=== PATIENT | male | born 1975 | race Hispanic/Latino ===

== ENCOUNTER 2024-12-28 15:44 | Inpatient (IN) | payer SELFPAY ==
[~2024-12-28] VITALS: Ht 177.8 cm; Wt 129.3 kg
[2024-12-28 16:24] LABS: APPEARANCE,URINE CLEAR (CLEAR); GLUCOSE, URINE (UA) >=1000 mg/dL (NEGATIVE); LEUKOCYTE ESTERASE ,URINE 25 Leu/uL (NEGATIVE); NITRATE,URINE NEGATIVE (NEGATIVE); OCCULT BLOOD,URINE NEGATIVE (NEGATIVE)
[2024-12-28 16:25] LABS: IMMATURE GRANULOCYTE ABSOLUTE 0.17 K/uL (0-1); NUCLEATED RED BLOOD CELLS 0.0 % (0.0-0.19); PLATELET COUNT (AUTO) 211 K/uL (130-400); RED BLOOD CELL COUNT(AUTO) 5.19 MIL/uL (4.50-6.20); RED CELL DISTRIBUTION WIDTH 12.0 % (11.0-15.5); WHITE BLOOD COUNT (AUTO) 13.7 K/uL (4.8-10.8)
[2024-12-28 16:25] LABS: ADD UA MICROSCOPIC YES
--- NOTE | 2024-12-28 16:31 | NUR ---
PENDING GFR RESULTS, IV SITE, & CONSENT FOR CT EXAM.
[2024-12-28 16:36] LABS: CREATININE 0.9 mg/dL (0.5-1.3); GLOMERULAR FILTR. RATE CALC 106.0 mL/min (>90); GLUCOSE,RANDOM 362.0 mg/dL (70-105); SODIUM SERUM 136.0 mmol/L (136-145); UREA NITROGEN, BLOOD 22.0 mg/dL (7-18)
[2024-12-28 16:41] LABS: CREATINE KINASE, TOTAL 54.0 U/L (21-232)
[2024-12-28 16:43] LABS: OTHER CASTS, URINE 1 /LPF (None Seen); SQUAMOUS EPITHELIAL CELL,UR FEW /HPF (0-2)
[2024-12-28] MEDS ORDERED: VANCOMYCIN KIT 1 GM/250 ML IV.KIT IV ONE (17:00)
[2024-12-28] MEDS ORDERED: IOHEXOL-350 75 ML VIAL IV ONE (17:20)
[2024-12-28] MEDS: [UNRECOGNIZED DRUG - OTHER] IV ONE (17:39)
--- NOTE | 2024-12-28 17:57 | ERN ---
General Chief Complaint: Cellulitis Stated Complaint: CELLULITIS Time Seen by MD: 15:47 History of Present Illness Initial Comments 49-year-old male, diabetic, obesity, presents for abdominal wall cellulitis and purulence draining from his belly button. Patient reports for the last week or so he has had some tenderness of the area, recently he has had increased spreading. There is some drainage coming from his belly but in and severe tenderness. He denies fever. He is tachycardic. Allergies: Coded Allergies: No Known Drug Allergies (Unverified Allergy, Unknown, 12/28/24) Past Medical History Past Medical History: Diabetes-Type II, Hypertension Past Surgical History: None ROS Dictation CONSTITUTIONAL: No chills, no fever, no weakness, no diaphoresis, no malaise. HEAD/FACE: No signs of trauma. EENT: No eye pain, no blurred vision, no tearing, no double vision, no ear pain, no ear discharge, no nose pain, no nasal congestion, no throat pain, no throat swelling, no mouth pain. RESPIRATORY: No cough, no orthopnea, no SOB, no stridor, no wheezing. CARDIOVASCULAR: No chest pain, no edema, no palpitations, no syncope. GASTROINTESTINAL/ABDOMINAL: Abdominal wall pain GENITOURINARY: No abnormal discharge, no dysuria, no frequent urination, no hematuria. No complaints of pain in the genitals. MUSCULOSKELETAL: No back pain, no gout, no joint pain, no joint swelling, no muscle pain, no muscle stiffness, no neck pain. INTEGUMENTARY: No change in color, no change in hair/nails, no dryness, no lesion, no lumps, no rash. NEUROLOGICAL/PSYCH: No anxiety, not depressed, no emotional problem, no headache, no numbness, no pre-existing deficit, no history of seizures, no trem ors, no weakness. HEMATOLOGIC/LYMPHATIC: Not anemic, no history of blood clots, no apparent bleeding, no bruising, glands not swollen. All Systems Negative, Except as Noted. Physical Exam Physical Exam Dictation VITAL SIGNS: Reviewed. GENERAL APPEARANCE: Alert, oriented x3, no acute distress, obese. HEAD AND FACE: Non-traumatic. EYES: PERRL, pink conjunctivas, eyelid no trauma, anterior chamber clear. EARS: Pinnas intact and no signs of trauma or erythema. Ear canals clear and no discharge. TMs no erythema. NOSE: No discharge, no bleeding. OROPHARYNX: Mouth normal, teeth no caries, tongue pink. Pharynx clear, no erythema. Tonsils no exudates, no abscesses noted. Mucous membrane moist. NECK: Supple, non-tender, no thyromegaly, no masses, no JVD, no bruits. BREAST: Deferred. CHEST: No tenderness, no crepitus, no paradoxical movement, no retractions. LUNGS: Clear, well-ventilated, symmetric, no rales, no wheezing, no rhonchi, no stridor, good breath sounds bilaterally. HEART: Regular rate, regular rhythm, no murmur, no gallops. VASCULAR: No peripheral edema. ABDOMEN: Cellulitis the with the wall, fluctuant purulent area near the belly but in about the size of a golf ball RECTAL: Deferred. GENITAL: Deferred. NEUROLOGICAL: Normal speech, gross motor function intact, gross sensory function intact. MUSCULOSKELETAL: Neck nontender, full range of motion, back nontender, full range of motion. EXTREMITIES: Nontender, full range of motion. SKIN: Color pink, dry, no turgor, no rash, no lacerations, no abrasions, no contusions. LYMPHATICS: Deferred. Results Laboratory and Microbiology Lab and Micro Result Laboratory Tests Test 12/28/24 16:09 12/28/24 16:12 Urine Color LIGHT-YELLOW (YELLOW) Urine Appearance CLEAR (CLEAR) Urine pH 5.5 (5.0-8.0) Urine Specific [place] 1.033 (1.001-1.031) Urine Protein NEGATIVE mg/dL (NEGATIVE) Urine Glucose (UA) >=1000 mg/dL (NEGATIVE) H Urine Ketones 40 mg/dL (NEGATIVE) H Urine Occult Blood NEGATIVE (NEGATIVE) Urine Nitrate NEGATIVE (NEGATIVE) Urine Bilirubin NEGATIVE mg/dL (NEGATIVE) Urine Urobilinogen 0.2 mg/dL (0.2-1.0) Urine Leukocyte Esterase 25 Thierry/uL (NEGATIVE) H Urine RBC 2-5 /HPF (0-1) H Urine WBC 6-10 /HPF (0-1) H Urine Squamous Epithelial Cells FEW /HPF (0-2) Urine Bacteria None /HPF (None Seen) Urine Other Casts 1 /LPF (None Seen) White Blood Count 13.7 K/uL (4.8-10.8) H Red Blood Count 5.19 MIL/uL (4.50-6.20) Hemoglobin 15.9 g/dL (14.0-18.0) Hematocrit 45.8 % (42-54) Mean Corpuscular Volume 88.2 fL (79-99) Mean Corpuscular Hemoglobin 30.6 pg (27.0-33.0) Mean Corpuscular Hemoglobin Concent 34.7 g/dL (32.0-36.0) Red Cell Distribution Width 12.0 % (11.0-15.5) Platelet Count 211 K/uL (130-400) Mean Platelet Volume 10.2 fL (7.5-10.5) Immature Granulocyte % (Auto) 1.2 % (0-1) H Neutrophils (%) (Auto) 79.5 % (40.0-77.0) H Lymphocytes (%) (Auto) 9.9 % (21.0-51.0) L Monocytes (%) (Auto) 8.8 % (3.0-13.0) Eosinophils (%) (Auto) 0.3 % (0.0-8.0) Basophils (%) (Auto) 0.3 % (0.0-5.0) Neutrophils # (Auto) 10.9 K/uL (1.8-7.7) H Lymphocytes # (Auto) 1.4 K/uL (1.0-4.8) Monocytes # (Auto) 1.2 K/uL (0.1-1.0) H Eosinophils # (Auto) 0.04 K/uL (0.00-0.70) Basophils # (Auto) 0.04 K/uL (0.00-0.20) Absolute Immature Granulocyte (auto 0.17 K/uL (0-1) Nucleated Red Blood Cells 0.0 % (0.0-0.19) White Cell Morphology Comment See comments Sodium Level 136 mmol/L (136-145) Potassium Level 4.0 mmol/L (3.5-5.1) Chloride Level 98 mmol/L (101-111) L Carbon Dioxide Level 28 mmol/L (21-32) Blood Urea Nitrogen 22 mg/dL (7-18) H Creatinine 0.9 mg/dL (0.5-1.3) Glomerular Filtration Rate Calc 106 mL/min (>90) Random Glucose 362 mg/dL (70-105) H Lactic Acid Level 2.2 mmol/L (0.8-2.5) Total Calcium 9.0 mg/dL (8.5-10.1) Total Creatine Kinase 54 U/L (21-232) Troponin I High Sensitivity < 4 ng/L (4-75) L C-Reactive Protein, Quantitative 234.00 mg/L (0.5-3.0) H MDM CC: Abdominal wall pain an abscess Historian: Patient Comorbidities: Obesity and diabetes Limitations by social determinants of health: Uninsured Differential diagnosis: Cellulitis, sepsis, abdominal abscess Labs show leukocytosis, elevated CRP. Lactic acid is mildly elevated. Chemistries shows elevated glucose no signs of DKA. Symptoms most consistent with cellulitis and abscess The CT scan per my independent interpretation shows an abscess in the abdominal wall does not appear to cross the peritoneum no free fluid in the abdomen Patient is started on cefepime, vancomycin, IV fluids. Admitted to hospitalist. Patient received IV fluids and IV antibiotics, on sepsis focused re-evaluation after the fluid bolus and antibiotics patient has stable perfusion and stable vital signs. ED Course Orders Procedure Category Date Status Time Cbc With Differential LAB 12/28/24 In Process 16:08 Blood Cult MAL 12/28/24 In Process 16:08 Urinalysis Profile LAB 12/28/24 Complete 16:08 Culture Urine MAL 12/28/24 In Process 16:08 0.9%Nacl 1000ml (Ns PHA 12/28/24 In Process 1000ml) 16:30 Creatine Kinase, Total LAB 12/28/24 Complete 16:08 Troponin I High LAB 12/28/24 Complete Sensitivity 16:08 Lactic Acid LAB 12/28/24 Complete 16:08 Basic Metabolic Panel LAB 12/28/24 Complete 16:08 Crp Quantitative LAB 12/28/24 Complete 16:08 Erythrocyte LAB 12/28/24 In Process Sedimentation Rate 16:08 Ct Abdomen/Pelvis CT 12/28/24 Taken W/Contrast 16:08 Vancomycin 1g/250ml PHA 12/28/24 Complete Kit (Vancomycin 1g/2 17:00 Cefepime Hcl 1 Gm PHA 12/28/24 Complete Vial (Maxipime 1 Gm Vi 17:00 Iohexol (Omnipaque) PHA 12/28/24 Complete 17:20 Current Medications Medications (Trade) Dose Ordered Sig/Tom Route PRN Reason Start Time Stop Time Status Last Admin Dose Admin Cefepime HCl (MAXipime 1 GM vial) 1 gm ONCE ONCE IVPB 12/28/24 17:00 12/28/24 17:01 DC 12/28/24 17:39 Iohexol (Omnipaque) 75 ml STK-MED ONCE IV 12/28/24 17:20 12/28/24 17:20 DC Sodium Chloride 4,218 ml @ 1,406 mls/hr ONCE ONCE IV 12/28/24 16:30 12/28/24 19:29 12/28/24 17:39 Vancomycin HCl (Vancomycin 1g/ 250ml Kit) 1 gm ONCE ONCE IV 12/28/24 17:00 12/28/24 17:01 DC Vital Signs Date Time Temp Pulse Resp B/P (MAP) Pulse Ox O2 Delivery O2 Flow Rate FiO2 12/28/24 16:00 97.7 101 20 145/69 98 Room Air* 0 21 12/28/24 15:45 97.5 110 18 140/90 97 Room Air DX & DISP Disposition: Inpatient Departure Impression: Primary Impression: Sepsis Additional Impressions: Abdominal wall abscess, Abdominal wall cellulitis, Hyperglycemia Critical Time: 30 minutes (Critical Care Procedure NoteAuthorized and Performed by: meTotal critical care time: Approximately 36 minutesDue to a high probability of clinically significant, life threatening deterioration, the patient required my highest level of preparedness to intervene emergently and I personally spent this critical care time directly and personally managing the patient. This critical care time included obtaining a history; examining the patient; pulse oximetry; ordering and review of studies; arranging urgent treatment with development of a management plan; evaluation of patient's response to treatment; frequent reassessment; and, discussions with other providers.This critical care time was performed to assess and manage the high probability of imminent, life-threatening deterioration that could result in multi-organ failure. It was exclusive of separately billable procedures and treating other patients and teaching time.Please see MDM section and the rest of the note for further information on patient assessment and treatment.) Condition: Stable Referrals: SELF,REFERRAL (PCP) ALBA HICKMAN DO Dec 28, 2024 17:57
[2024-12-28 18:17] LABS: ERYTHROCYTE SEDIMENTATION RATE 42 MM/HR (0-15)
[2024-12-28] MEDS ORDERED: COMPOUND IV REFRIGERATED 1 EACH IVSOLN MISC PRN (18:30)
[2024-12-28] MEDS ORDERED: VANCOMYCIN PROTOCOL PER PHARMACY IV SCH (18:30)
--- NOTE | 2024-12-28 18:37 | EKG ---
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
[2024-12-28] MEDS: VANCOMYCIN 2GM/500 ML BAG 500 ML IV ONE (18:40)
--- NOTE | 2024-12-28 18:42 | HMCIMG ---
EXAM: CT Abdomen and Pelvis withIV contrast CLINICAL HISTORY: Wall cellulitis. TECHNIQUE: Thin collimated axial CT images of the abdomen and pelvis were obtained with sagittal and coronal reformatted images also submitted. CT scan done according to ALARA (As Low As Reasonably Achievable). CONTRAST: Yes. COMPARISON: None. FINDINGS: Unremarkable visualized lung parenchyma. There is no focal abnormality appreciated within the pancreas, spleen, adrenals, or kidneys. Hepatic steatosis noted. Gallbladder is contracted. There is no obvious bowel wall thickening. Bowel loops are normal in caliber without evidence of obstruction or ileus. The appendix is normal. There is no abnormality within the urinary bladder. Unremarkable re-productive organs. Aorta is normal in caliber. No lymphadenopathy. No free fluid. There is no acute osseous abnormality. Mild multilevel spondylosis noted. Moderate to severe periumbilical inflammation noted. No gross drainable collection. No obvious peritoneal extension. IMPRESSIONS: Moderate to severe periumbilical cellulitis. No gross drainable collection. No obvious peritoneal extension. /[place]elches
[2024-12-28 18:43] LABS: ASPARTATE AMINOTRANSFERASE 9.0 U/L (10-37); TOTAL PROTEIN, SERUM 7.6 g/dL (6.0-8.3)
[2024-12-28 18:48] VITALS: PULSE 103; RESP 20; O2SAT 99
[2024-12-28 18:49] LABS: ABG BASE EXCESS -1.9 mmol/L (-2.0-3.0); ABG HCO3 23.9 mmol/L (21.0-28.0); ABG OXYGEN SATURATION 40.5 % (94.0-98.0); ABG PCO2 44 mmHg (35-48); ABG PH 7.349 (7.350-7.450); CARBON MONOXIDE 1.6 % (0.5-1.5); DEVICE COMMENT MAYRA RN, VBG; PO2, ARTERIAL BG < 45.0 mmHg (83.0-108.0); TEMPERATURE, CELSIUS BG 37.0 CELSIUS (35.5-37.0); VENT MODE, BG RA (ROOM AIR)
--- NOTE | 2024-12-28 19:10 | HP ---
[facility] HISTORY [facility] PHYSICAL Date of Service: Dec 28, 2024 Time of Service: 18:43 HISTORY OF PRESENT ILLNESS: Date of service: 12/28/2024 patient was seen in ER room 10 This is a 49-year-old male with underlying history of poorly controlled type 2 diabetes mellitus, obesity, hypertension who presented to the ER for further evaluation erythema, swelling increased drainage noted from the umbilical area. Patient states that symptoms initially started close to Monday night when he noticed some erythema involving the periumbilical region. Erythema has been progressive since yesterday, has been having [id number] abdominal pain as well. Redness has spread to the lateral quadrants of the abdomen patient reports noticing purulent drainage coming out as well. He went to [facility] and reports being treated with oral antibiotics with levofloxacin and clindamycin. Symptoms have not improved with oral antibiotics. Denies previous history of abscesses or skin infections. Reports being a diabetic for 10 years. He is supposed to be on metformin therapy which he has not taken for several days now. Sugars have been running high. Denies being on insulin therapy as outpatient. He has been having fevers of 101 F yesterday and has been taking Tylenol for pain control. On presentation to the hospital, patient was noted to be T-max of 97.5 F, heart rate of 110 with sinus tachycardia, blood pressure 140/90. [place] [address] with neutrophilia, hemoglobin 13.9, platelet count of 635656. BMP showed findings of sodium of 136, potassium 4.0, chloride of 98, BUN of 22 , creatinine of 0.9, blood glucose of 362, lactic acid of two CRP of 234. Patient underwent further evaluation with CT abdomen pelvis with IV contrast with the read pending, We will admit this patient for further treatment and management of progressive abdominal wall cellulitis concerns for periumbilical abscess. Patient was noted to be septic on presentation and will receive broad-spectrum antibiotics with IV vancomycin/ cefepime. Consultation with Infectious Disease will be requested to leave and if abscess is confirmed on abdominal CT, we will have surgery follow this patient for incision and drainage. Blood sugars noted be high at 362, we will obtain venous blood gas and blood ketones to rule out DKA, patient will be started on sliding scale insulin and basal Lantusfor blood glucose control. We will see how patient progresses in the next 72-96 hours. REVIEW OF SYSTEMS CONSTITUTIONAL: Be responsible coma malaise NEUROLOGICAL: Denies headache, amaurosis fugax, motor weakness, sensory deficit, vertigo/spinning sensation, gait abnormalities, or tremors. ENT: No hearing loss, otalgia, otorrhea, rhinitis, rhinorrhea, hoarseness, or sore throat. CARDIOVASCULAR: Denies any exertional angina, dyspnea on exertion, orthopnea, paroxysmal nocturnal dyspnea, palpitations, life-threatening arrhythmias, claudication. PULMONARY: Denies any shortness of breath, cough, phlegm/sputum, hemoptysis, pleuritic chest pain. SLEEP: Denies morning headaches, daytime somnolence or napping. Denies difficulty falling asleep, staying asleep, waking from sleep. Denies knowledge of snoring. GASTROINTESTINAL: Progressive redness and swelling of the abdominal wall with purulent drainage GENITOURINARY: Denies frequency, urgency, nocturia, hematuria or incontinence (Storage/Irritative symptoms.) Low urinary stream, straining to void, urinary intermittency or hesitancy, splitting of the voiding stream, terminal dribbling. ENDOCRINOLOGIC: Denies polyuria, polydipsia, polyphagia or heat/cold intolerances. HEMATOLOGIC: Denies thrombophilia/previous clots, or coagulopathy/bleeding disorders. ONCOLOGIC: Denies personal history of malignancy. DERMATOLOGIC: As noted above PSYCHIATRIC: Denies any suicidal or homicidal ideation. Denies hallucinations. PAST MEDICAL HISTORY: Hypertension, type 2 diabetes mellitus being diagnosed about 10 years ago, obesity, reports having lost about 80 lb over the last one year PAST SURGICAL HISTORY: Denies history of major surgeries PAST SOCIAL HISTORY: Denies active smoking or alcohol consumption, drinks about once a month, denies illicit drug use FAMILY HISTORY: Denies pertinent family history Allergies: No known drug allergies Home medications: Reports being on losartan for blood pressure control, and metformin, patient does not know the doses of the medication Coded Allergies: No Known Drug Allergies (Unverified Allergy, Unknown, 12/28/24) PHYSICAL EXAM GENERAL APPEARANCE: The patient is awake, alert, and oriented, in no acute cardiopulmonary distress. NEUROLOGICAL: Cranial nerves II-XII grossly intact. Motor is 5/5 in bilateral upper and lower extremities proximal to distal. No sensory deficits. HEENT: Face is symmetric. Pupils are equal and reactive. Extraocular movements are intact. NECK: Supple. No JVD. No thyromegaly. No submental, submandibular, pre- /postauricular, occipital or supraclavicular lymphadenopathy. CHEST: Normal chest expansion. No Telemetry. LUNGS: Absence of any rales, rhonchi or any wheezing. CARDIOVASCULAR: Regular. S1 and S2 normal. No appreciable rubs, murmurs or gallops. ABDOMEN: Soft, erythema noted around the abdominal wall with significant swelling, induration noted around the umbilical/periumbilical region, small amount of purulent drainage noted coming from the umbilical region : Deferred. No Kidd. EXTREMITIES: Non-edematous and not cyanotic. No clubbing. Good capillary refill. Vital Sign (Last 24 Hours) 12/28/24 16:00 Temp 97.7 Pulse 101 Resp 20 B/P (MAP) 145/69 Pulse Ox 98 O2 Delivery Room Air* O2 Flow Rate 0 FiO2 21 LABS: Laboratory: Test 12/28/24 18:24 12/28/24 16:12 12/28/24 16:09 Range/Units Whole Blood Ketones Quantitative 1.3 H 0.0-0.6 mmol/L Total Bilirubin 1.2 H 0.2-1.0 mg/dL Direct Bilirubin 0.2 0.0-0.3 mg/dL Aspartate Amino Transf (AST/SGOT) 9 L 10-37 U/L Alanine Aminotransferase (ALT/SGPT) 20 12-78 U/L Alkaline Phosphatase 88 50-136 U/L Total Protein 7.6 6.0-8.3 g/dL Albumin 3.1 L 3.5-5.0 g/dL White Blood Count 13.7 H 4.8-10.8 K/uL Red Blood Count 5.19 4.50-6.20 MIL/uL Hemoglobin 15.9 14.0-18.0 g/dL Hematocrit 45.8 42-54 % Mean Corpuscular Volume 88.2 79-99 fL Mean Corpuscular Hemoglobin 30.6 27.0-33.0 pg Mean Corpuscular Hemoglobin Concent 34.7 32.0-36.0 g/dL Red Cell Distribution Width 12.0 11.0-15.5 % Platelet Count 211 130-400 K/uL Mean Platelet Volume 10.2 7.5-10.5 fL Immature Granulocyte % (Auto) 1.2 H 0-1 % Neutrophils (%) (Auto) 79.5 H 40.0-77.0 % Lymphocytes (%) (Auto) 9.9 L 21.0-51.0 % Monocytes (%) (Auto) 8.8 3.0-13.0 % Eosinophils (%) (Auto) 0.3 0.0-8.0 % Basophils (%) (Auto) 0.3 0.0-5.0 % Neutrophils # (Auto) 10.9 H 1.8-7.7 K/uL Lymphocytes # (Auto) 1.4 1.0-4.8 K/uL Monocytes # (Auto) 1.2 H 0.1-1.0 K/uL Eosinophils # (Auto) 0.04 0.00-0.70 K/uL Basophils # (Auto) 0.04 0.00-0.20 K/uL Absolute Immature Granulocyte (auto 0.17 0-1 K/uL Nucleated Red Blood Cells 0.0 0.0-0.19 % White Cell Morphology Comment See comments Erythrocyte Sedimentation Rate 42 H 0-15 MM/HR Sodium Level 136 136-145 mmol/L Potassium Level 4.0 3.5-5.1 mmol/L Chloride Level 98 L 101-111 mmol/L Carbon Dioxide Level 28 21-32 mmol/L Blood Urea Nitrogen 22 H 7-18 mg/dL Creatinine 0.9 0.5-1.3 mg/dL Glomerular Filtration Rate Calc 106 >90 mL/min Random Glucose 362 H 70-105 mg/dL Lactic Acid Level 2.2 0.8-2.5 mmol/L Total Calcium 9.0 8.5-10.1 mg/dL Total Creatine Kinase 54 21-232 U/L Troponin I High Sensitivity < 4 L 4-75 ng/L C-Reactive Protein, Quantitative 234.00 H 0.5-3.0 mg/L Urine Color LIGHT-YELLOW YELLOW Urine Appearance CLEAR CLEAR Urine pH 5.5 5.0-8.0 Urine Specific [place] 1.033 H 1.001-1.031 Urine Protein NEGATIVE NEGATIVE mg/dL Urine Glucose (UA) >=1000 H NEGATIVE mg/dL Urine Ketones 40 H NEGATIVE mg/dL Urine Occult Blood NEGATIVE NEGATIVE Urine Nitrate NEGATIVE NEGATIVE Urine Bilirubin NEGATIVE NEGATIVE mg/dL Urine Urobilinogen 0.2 0.2-1.0 mg/dL Urine Leukocyte Esterase 25 H NEGATIVE Thierry/uL Urine RBC 2-5 H 0-1 /HPF Urine WBC 6-10 H 0-1 /HPF Urine Squamous Epithelial Cells FEW 0-2 /HPF Urine Bacteria None None Seen /HPF Urine Other Casts 1 None Seen /LPF Current Medications Medications (Trade) Dose Ordered Sig/Tom Route PRN Reason Start Time Stop Time Status Last Admin Dose Admin Acetaminophen (TYLenol 325MG TAB) 650 mg Q6H PRN PO MILD PAIN (1-3) 12/28/24 18:30 01/27/25 18:29 Albuterol (DUOneb) 1 udvial Q6H PRN IH SHORTNESS OF BREATH 12/28/24 18:30 01/27/25 18:29 Cefepime HCl (MAXipime 2 gm vial) 2 gm BID IVPB 12/29/24 09:00 01/08/25 08:59 Famotidine (Pepcid 20mg Vial) 20 mg BID IV 12/28/24 21:00 01/27/25 20:59 Insulin Human Regular (humuLIN R 100 UNIT/ML 3ML) INSULIN SLIDING SCAL... ACHS SQ 12/28/24 21:00 01/27/25 20:59 Ketorolac Tromethamine (toRADol) 15 mg Q12H PRN IV MODERATE PAIN (4-6) 12/28/24 18:30 12/30/24 18:30 Lactated Ringer's 1,000 ml @ 100 mls/hr Q10H IV 12/28/24 20:00 01/27/25 19:59 Morphine Sulfate (morPHINE 2MG SYG) 2 mg Q6H PRN IVP SEVERE PAIN (7-10) 12/28/24 18:30 01/04/25 18:29 Ondansetron HCl (zoFRAN 4MG INJ) 4 mg Q6H PRN IVP NAUSEA/VOMITING 12/28/24 18:30 01/27/25 18:29 Vancomycin HCl 250 ml @ 125 mls/hr Q12H IV 12/29/24 08:00 01/08/25 07:59 Vancomycin HCl (Vancomycin Protocol) 1 each AD IV 12/28/24 18:30 01/11/25 18:29 DIAGNOSTICS / RADIOLOGY: SERVICE 1600 REASON: wall cellulitis ORDERING PHYSICIAN: ALBA HICKMAN DO PROCEDURE: ABD PEL W - CT ABDOMEN/PELVIS W/CONTRAST EXAM: CT Abdomen and Pelvis withIV contrast CLINICAL HISTORY: Wall cellulitis. TECHNIQUE: Thin collimated axial CT images of the abdomen and pelvis were obtained with sagittal and coronal reformatted images also submitted. CT scan done according to ALARA (As Low As Reasonably Achievable). CONTRAST: Yes. COMPARISON: None. FINDINGS: Unremarkable visualized lung parenchyma. There is no focal abnormality appreciated within the pancreas, spleen, adrenals, or kidneys. Hepatic steatosis noted. Gallbladder is contracted. There is no obvious bowel wall thickening. Bowel loops are normal in caliber without evidence of obstruction or ileus. The appendix is normal. There is no abnormality within the urinary bladder. Unremarkable re-productive organs. Aorta is normal in caliber. No lymphadenopathy. No free fluid. There is no acute osseous abnormality. Mild multilevel spondylosis noted. Moderate to severe periumbilical inflammation noted. No gross drainable collection. No obvious peritoneal extension. IMPRESSIONS: Moderate to severe periumbilical cellulitis. No gross drainable collection. No obvious peritoneal extension. /[place] DICTATED BY: JANETTE ANDREWS Jr., MD DATE: 12/28/241940 ELECTRONICALLY SIGNED BY: JANETTE ANDREWS Jr., MD DATE: 12/28/241940 ASSESSMENT: Sepsis secondary to complicated cellulitis involving the periumbilical region, POA Complicated severe cellulitis involving periumbilical/umbilical region with involvement of the abdominal wall, POA r/o Developing abscess involving periumbilical/umbilical region, POA Lactic acidosis, mild, POA, 2/2 sepsis Leukocytosis, POA Severe hyperglycemia, POA History of very poorly controlled type 2 diabetes mellitus with noncompliance with metformin therapy as outpatient, POA Obesity, POA Hypertension, POA PLAN: Patient will be admitted to cardiac telemetry floor Patient will receive sepsis bolus of fluids 30 mL/kg We will start maintenance IV fluid of LR at 100 mL/hour Broad-spectrum antibiotics with IV vancomycin/cefepime, patient was taking oral levofloxacin and clindamycin at home with no improvement of cellulitis We will obtain wound cultures, we will follow up results of blood culture CT of the abdomen/pelvis with IV contrast showed severe cellulitis, we will have surgery follow this patient to ensure there is no developing abscess that might need surgical drainage Consultation with Infectious Disease will be requested Blood glucose is greater than 300, patient has mild ketosis, venous blood gas showed bicarb of 23, we will start patient on sliding scale insulin, we will start [id number] units tonight, monitor blood glucose trend closely we will check a A1c level Patient will need basal Lantus on discharge along with metformin therapy for management poorly controlled type 2 diabetes mellitus We will have endocrinology follow this patient along Pain control with IV morphine for severe pain, IV Toradol for moderate pain We will apply warm compresses with the periumbilical area tonight All labs will be repeated in the morning, we will monitor lactic acid trend closely, we will obtain a urine drug screen Prognosis: Remains guarded Discussed with patient to ensure he remains compliant with antidiabetic medications on discharge, to reduce risk of recurrent skin infections, sepsis etc. patient verbalized understanding Date of service: 12/28/2024 Plan of care was discussed with patient at bedside, Terrence Clemente MD Advanced Care Planning: Which of the following were discussed: Hospice care: Yes __ No _X_ Therapeutic options: Yes _X_ No __ Advance directives: Yes _X_ No __ Other discussions: Discussed with who?: Patient Voluntary nature of this service was explained to the patient? Yes _x_ No __ Amount of time spent: 20 minutes TERRENCE CLEMENTE MD Dec 28, 2024 19:10
[2024-12-28 19:29] LABS: INR 0.99 (0.85-1.15)
--- NOTE | 2024-12-28 19:44 | NUR ---
REPORT GIVEN TO ER HOLDING NURSE AARON DE LA FUENTE. PT MOVED FROM ER 9 TO ER 5 AT THIS TIME.
--- NOTE | 2024-12-28 19:54 | NUR ---
REPORT GIVEN BY JOSR RN, PT V/S STABLE, REPORTS LOCALIZED PAIN WITH MOVEMENT TO ABDOMINAL AREA, IV PAIN MEDICATION ADMINISTERED, PT TOLERATED WELL.
[2024-12-28] MEDS: LACTATED RINGERS 1000ML 1,000 ML IV SCH (20:37)
[2024-12-28] MEDS: FAMOTIDINE 20MG VIAL IV SCH (20:58)
[2024-12-28 21:04] VITALS: BP 117/76; PULSE 103; RESP 16; TEMP 98.3
[2024-12-28 21:34] VITALS: BP 125/68; PULSE 16; RESP 16; TEMP 98.3
--- NOTE | 2024-12-28 21:34 | NUR ---
REPORT GIVEN TO MAX RN FOR ROOM 220 AROUND 2119. PT TOLERATED FLOOR TRANSFER WELL, VS WITHIN NORMAL LIMITS
[2024-12-28 22:00] VITALS: O2SAT 97
--- NOTE | 2024-12-28 22:00 | NUR ---
WARM COMPRESS APPLIED TO UMBILICAL AREA, TOLERATED WELL, WILL CONT TO MONITOR
[2024-12-28 23:10] VITALS: BP 127/71; PULSE 102; RESP 18; TEMP 98.9
[2024-12-29] VITALS (24 sets, daily range): BP systolic 108–147; BP diastolic 56–90; PULSE 94–115; RESP 15–20; TEMP 97.7–99.4; O2SAT 96–98
[2024-12-29] MEDS ORDERED: CLIN30GE2 TP (03:09)
[2024-12-29] MEDS ORDERED: CLIN-141 PO (03:09)
[2024-12-29] MEDS ORDERED: LOSA50TA64 PO (03:09)
[2024-12-29] MEDS ORDERED: [UNRECOGNIZED DRUG - OTHER] PO (03:09)
[2024-12-29] MEDS ORDERED: LEVO750T90 PO (03:09)
[2024-12-29 03:40] LABS: IMMATURE GRANULOCYTE ABSOLUTE 0.09 K/uL (0-1); NUCLEATED RED BLOOD CELLS 0.0 % (0.0-0.19); PLATELET COUNT (AUTO) 170 K/uL (130-400); RED BLOOD CELL COUNT(AUTO) 4.41 MIL/uL (4.50-6.20); RED CELL DISTRIBUTION WIDTH 12.0 % (11.0-15.5); WHITE BLOOD COUNT (AUTO) 11.9 K/uL (4.8-10.8)
[2024-12-29 04:09] LABS: CREATININE 0.5 mg/dL (0.5-1.3); GLOMERULAR FILTR. RATE CALC 127.0 mL/min (>90); GLUCOSE,RANDOM 210.0 mg/dL (70-105); SODIUM SERUM 137.0 mmol/L (136-145); UREA NITROGEN, BLOOD 13.0 mg/dL (7-18)
[2024-12-29] MEDS: MAGNESIUM 2GM PREMIX 50ML 50 ML IV ONE (05:02)
[2024-12-29] MEDS: VANCOMYCIN 1.5 GM/250 ML BAG 250 ML IV SCH (09:00)
[2024-12-29] MEDS: SUGAMMADEX SODIUM 200 MG/2 ML VIAL IV ONE (14:06)
[2024-12-29] MEDS ORDERED: LIDOCAINE PF 100MG/5ML (2%) SYRINGE 5ML ONE (14:08)
[2024-12-29] MEDS ORDERED: MIDAZOLAM HCL 1 MG/ML 2ML VIAL ONE (14:08)
[2024-12-29] MEDS ORDERED: SUCCINYLCHOLINE CHLORIDE 20 MG/ML 10 ML VIAL ONE (14:09)
--- NOTE | 2024-12-29 14:09 | CONS ---
GENERAL SURGERY CONSULTATION NOTE Date/Time Patient Seen: December 29, 2024 1:00 p.m. Requesting Physician: Dr. Clemente Reason for Consultation: Abdominal wall cellulitis History of Present Illness: This is a 49-year-old male that presented to the emergency department for periumbilical erythema. Patient has a history of diabetes. He reports that over the last couple of weeks he noticed some foul odor and drainage around his belly button. The last few days he had redness and swelling and pain. Pain did not get any better so he came to the emergency department. Patient has been febrile tachycardic otherwise hemodynamically stable. He has a leukocytosis. CT scan of the abdomen and pelvis was performed which showed cellulitis. No clear fluid collection. Patient was admitted and started on IV antibiotics. Surgery was consulted for possible abscess. Past Medical History: Diabetes Past Surgical History: None Family History: None Social History: Noncontributory Current Medications Medications (Trade) Dose Ordered Sig/Tom Route Start Time Stop Time Status Last Admin Dose Admin Cefepime HCl (MAXipime 2 gm vial) 2 gm BID IVPB 12/29/24 09:00 01/08/25 08:59 12/29/24 10:39 2 GM Famotidine (Pepcid 20mg Vial) 20 mg BID IV 12/28/24 21:00 01/27/25 20:59 12/29/24 09:00 20 MG Insulin Glargine (LANtus 100 UNITS/ML 10 ML VIAL) 15 units HS SQ 12/28/24 21:00 01/27/25 20:59 12/28/24 20:59 15 UNITS Insulin Human Regular (humuLIN R 100 UNIT/ML 3ML) INSULIN SLIDING SCAL... ACHS SQ 12/28/24 21:00 01/27/25 20:59 12/28/24 21:00 4 UNIT Lactated Ringer's 1,000 ml @ 100 mls/hr Q10H IV 12/28/24 20:00 01/27/25 19:59 12/29/24 05:03 100 MLS/HR Vancomycin HCl 250 ml @ 125 mls/hr Q12H IV 12/29/24 08:00 01/08/25 07:59 12/29/24 09:00 125 MLS/HR Vancomycin HCl (Vancomycin Protocol) 1 each AD IV 12/28/24 18:30 9/6/25 18:29 Review of Systems: CONST: No fever, fatigue, or weight changes. EYES: No recent vision problems. ENT: No congestion, ear pain, or sore throat. C/V: No chest pain, palpitations, or edema. RESP: No cough, congestion, wheezing or shortness of breath. GI: No abdominal pain, nausea, vomiting, constipation, or diarrhea. : No incontinence or dysuria. SKIN: No rash. NEURO: No headache, focal numbness or weakness, dizziness, or seizures. PSYCH: No depression or anxiety. HEME: No abnormal bruising or bleeding. LYMPH: No swollen glands. Physical Examination: GENERAL: No acute distress. HEAD: Normal with no signs of head trauma. EYES: PERRLA, EOMI, conjunctiva and sclera normal. LUNGS: Respirations nonlabored HEART: Regular rate and rhythm ABD: Soft, nondistended, focally tender around the umbilicus in the erythematous areas. Periumbilical erythema has been marked and appears to over his three receded from markings. : Not examined EXT: No clubbing, cyanosis or edema. SKIN: No rashes or lesions noted. NEURO: Awake, alert, and oriented x3. No focal sensory or strength deficits noted. Vital Signs (last 8hr) Date Time Temp Pulse Resp B/P (MAP) Pulse Ox O2 Delivery O2 Flow Rate FiO2 12/29/24 11:30 98.4 94 18 134/78 98 Room Air 12/29/24 08:00 96 Room Air* 0 21 12/29/24 07:20 101 20 N/A Room Air 21 12/29/24 07:13 98.2 101 18 128/75 96 Room Air Laboratory: Hematology Labs: Test 12/29/24 03:09 12/28/24 16:12 Range/Units White Blood Count 11.9 H 4.8-10.8 K/uL Red Blood Count 4.41 L 4.50-6.20 MIL/uL Hemoglobin 13.6 L 14.0-18.0 g/dL Hematocrit 38.4 L 42-54 % Mean Corpuscular Volume 87.1 79-99 fL Mean Corpuscular Hemoglobin 30.8 27.0-33.0 pg Mean Corpuscular Hemoglobin Concent 35.4 32.0-36.0 g/dL Red Cell Distribution Width 12.0 11.0-15.5 % Platelet Count 170 130-400 K/uL Mean Platelet Volume 9.9 7.5-10.5 fL Immature Granulocyte % (Auto) 0.8 0-1 % Neutrophils (%) (Auto) 74.9 40.0-77.0 % Lymphocytes (%) (Auto) 14.0 L 21.0-51.0 % Monocytes (%) (Auto) 9.5 3.0-13.0 % Eosinophils (%) (Auto) 0.5 0.0-8.0 % Basophils (%) (Auto) 0.3 0.0-5.0 % Neutrophils # (Auto) 8.9 H 1.8-7.7 K/uL Lymphocytes # (Auto) 1.7 1.0-4.8 K/uL Monocytes # (Auto) 1.1 H 0.1-1.0 K/uL Eosinophils # (Auto) 0.06 0.00-0.70 K/uL Basophils # (Auto) 0.03 0.00-0.20 K/uL Absolute Immature Granulocyte (auto 0.09 0-1 K/uL Nucleated Red Blood Cells 0.0 0.0-0.19 % White Cell Morphology Comment See comments Erythrocyte Sedimentation Rate 42 H 0-15 MM/HR Chemistry Labs: Test 12/29/24 11:31 12/29/24 03:09 12/28/24 20:20 12/28/24 18:24 Range/Units Whole Blood Glucose 178 H 70-110 MG/DL Sodium Level 137 136-145 mmol/L Potassium Level 3.4 L 3.5-5.1 mmol/L Chloride Level 102 101-111 mmol/L Carbon Dioxide Level 25 21-32 mmol/L Blood Urea Nitrogen 13 7-18 mg/dL Creatinine 0.5 0.5-1.3 mg/dL Glomerular Filtration Rate Calc 127 >90 mL/min Random Glucose 210 H 70-105 mg/dL Total Calcium 7.9 L 8.5-10.1 mg/dL Magnesium Level 1.70 L 1.80-2.40 mg/dL C-Reactive Protein, Quantitative 187.50 H 0.5-3.0 mg/L Lactic Acid Level 1.5 0.8-2.5 mmol/L Whole Blood Ketones Quantitative 1.3 H 0.0-0.6 mmol/L Total Bilirubin 1.2 H 0.2-1.0 mg/dL Direct Bilirubin 0.2 0.0-0.3 mg/dL Aspartate Amino Transf (AST/SGOT) 9 L 10-37 U/L Alanine Aminotransferase (ALT/SGPT) 20 12-78 U/L Alkaline Phosphatase 88 50-136 U/L Total Protein 7.6 6.0-8.3 g/dL Albumin 3.1 L 3.5-5.0 g/dL Procalcitonin < 0.05 L 0.05-0.5 ng/mL Thyroid Stimulating Hormone (TSH) 1.62 0.36-3.74 uIU/mL Test 12/28/24 16:12 Range/Units Hemoglobin A1c 11.4 H 4.0-6.0 % Estimated Average Glucose (eAG) 280 H 70-126 mg/dL Total Creatine Kinase 54 21-232 U/L Troponin I High Sensitivity < 4 L 4-75 ng/L Coagulation Labs: Test 12/28/24 16:12 Range/Units Prothrombin Time 10.5 9.6-11.6 SEC Prothromb Time International Ratio 0.99 0.85-1.15 Activated Partial Thromboplast Time 31.6 26.3-35.5 SEC Diagnostics / Radiology: PATIENT: HENRY BALDWIN MR#: [id number] : 1975 SEX: M AGE: 49 LOCATION: [facility] ORDER 1611 STATUS: ADM IN REPORT#: [id number] SERVICE 1608 REASON: wall cellulitis ORDERING PHYSICIAN: ALBA HICKMAN DO PROCEDURE: ABD PEL W - CT ABDOMEN/PELVIS W/CONTRAST EXAM: CT Abdomen and Pelvis withIV contrast CLINICAL HISTORY: Wall cellulitis. TECHNIQUE: Thin collimated axial CT images of the abdomen and pelvis were obtained with sagittal and coronal reformatted images also submitted. CT scan done according to ALARA (As Low As Reasonably Achievable). CONTRAST: Yes. COMPARISON: None. FINDINGS: Unremarkable visualized lung parenchyma. There is no focal abnormality appreciated within the pancreas, spleen, adrenals, or kidneys. Hepatic steatosis noted. Gallbladder is contracted. There is no obvious bowel wall thickening. Bowel loops are normal in caliber without evidence of obstruction or ileus. The appendix is normal. There is no abnormality within the urinary bladder. Unremarkable re-productive organs. Aorta is normal in caliber. No lymphadenopathy. No free fluid. There is no acute osseous abnormality. Mild multilevel spondylosis noted. Moderate to severe periumbilical inflammation noted. No gross drainable collection. No obvious peritoneal extension. IMPRESSIONS: Moderate to severe periumbilical cellulitis. No gross drainable collection. No obvious peritoneal extension. /[place] DICTATED BY: JANETTE ANDREWS Jr., MD DATE: 12/28/241940 ELECTRONICALLY SIGNED BY: JANETTE ADNREWS Jr., MD DATE: 12/28/241940 Assessment: This is a 49-year-old male with periumbilical cellulitis of the abdominal wall. Plan: I recommend incision and drainage of the this patient has erythema and cellulitis has been only improving mildly. I discussed this procedure in detail with the patient. All questions were answered. The patient expressed understanding and agreement with the plan. ANDREW ROMAN DO Dec 29, 2024 14:09
--- NOTE | 2024-12-29 15:21 | OP ---
Operative Note: DATE OF PROCEDURE: 12/29/24 SURGEON: ANDREW ROMAN DO LIBRARY HELPER: None ANESTHESIA: General ANESTHESIOLOGIST/FORECLOSURE CLERK: ARLENE Thompson PREOPERATIVE DIAGNOSIS: Abdominal wall cellulitis POSTOPERATIVE DIAGNOSIS: Abdominal wall cellulitis with abscess SYNOPSIS: None PROCEDURE: Incision and drainage of abdominal wall abscess ESTIMATED BLOOD LOSS: 50 cc INDICATIONS: This is a 49-year-old male with a week or so periumbilical pain and drainage. Presented to the hospital with worsening periumbilical pain and erythema. Patient had a leukocytosis and fever. CT scan showed cellulitis in the periumbilical region. No obvious drainable fluid collection and no apparent hernia. On physical exam the patient is abdomen was erythematous and indurated. A line had been marked previously to demarcate the erythema which appeared to have receded from the line. I recommended incision and drainage in the periumbilical region. I discussed the procedure in detail with the patient. All questions were answered. The patient expressed understanding and agreement with the plan. DESCRIPTION OF PROCEDURE: The patient was placed on the operating table in the supine position. After adequate sedation the patient was intubated by anesthesia. Perioperative antibiotics were given. The patient's abdomen was prepped and draped in the usual sterile fashion. A time-out was performed. A 5 cm transverse infraumbilical skin incision was made. Purulent drainage was appreciated. The wound was explored bluntly and copious purulent drainage was appreciated. Cultures were obtained. I continued to explore the periumbilical region bluntly. The wound appeared to track all the way around the umbilical stalk. I did not appreciate any hernia incarcerated or otherwise. The wound was copiously irrigated with sterile saline. The wound was packed with Betadine-soaked Kerlix and dressed with ABD and tape. The patient tolerated the procedure well. All instrument, needle, and sponge counts were correct at the end of the procedure. The patient was aroused from sedation, extubated, and transferred to the postanesthesia care unit in good condition. ANDREW ROMAN DO Dec 29, 2024 15:21
--- NOTE | 2024-12-29 17:30 | PN ---
[facility] PROGRESS NOTE Date of Service: Dec 29, 2024 Time of Service: 16:46 SUBJECTIVE: This is a 49-year-old male with underlying history of poorly controlled type 2 diabetes mellitus, obesity, hypertension who presented to the ER for further evaluation erythema, swelling increased drainage noted from the umbilical area. His symptoms initially started on night of 12/22/2024 when he noticed some erythema involving the periumbilical region. Erythema has been progressive since yesterday, has been having [id number] abdominal pain as well. Redness has spread to the lateral quadrants of the abdomen patient reports noticing purulent drainage coming out as well. He cleaned the area with soap and water. He went to [facility] and reports being treated with oral antibiotics with levofloxacin and clindamycin. Symptoms have not improved with oral antibiotics. Denies previous history of abscesses or skin infections. Reports being a diabetic for 10 years. He is supposed to be on metformin therapy which he has not taken for several days now. Sugars have been running high. Denies being on insulin therapy as outpatient. He has been having fevers of 101 F yesterday and has been taking Tylenol for pain control. On presentation to the hospital, patient was noted to be T-max of 97.5 F, heart rate of 110 with sinus tachycardia, blood pressure 140/90. [place] [address] with neutrophilia, hemoglobin 13.9, platelet count of 350416. BMP showed findings of sodium of 136, potassium 4.0, chloride of 98, BUN of 22 , creatinine of 0.9, blood glucose of 362, lactic acid of two CRP of 234. His CT abdomen and pelvis showed moderate to severe periumbilical cellulitis. The patient is admitted for further treatment and management of progressive a bdominal wall cellulitis concerns for periumbilical abscess. He is started on IV cefepime and IV Vancomycin. ID, surgery and endocrinology were consulted. He is started on sliding scale insulin and basal Lantus. Case management was consulted as he is uninsured and has sepsis. 12/29/2024: He is seen in room 220. He has periumbilical pain and redness. He didn't eat for the past 3 days. He has fever last night but now he has no fever. His vitals are in the normal range except for heart rate is 102. His labs are in the normal range except for WBC is 11.9, Hb is 23.6, potassium is 3.4, Glucose is 191, calcium is 7.9, magnesium is 1.7, CRP is 187.50. General surgery saw him and they recommended incision and drainage. He is NPO. We replaced potassium and magnesium as they are low. His nasal screen is negative for MRSA and blood culture showed no growth after 24 hours. We are waiting for endocrinology, infectious disease recommendations and case management evaluation. Also we are waiting for lab reports. REVIEW OF SYSTEMS CONSTITUTIONAL: Be responsible coma malaise NEUROLOGICAL: Denies headache, amaurosis fugax, motor weakness, sensory deficit, vertigo/spinning sensation, gait abnormalities, or tremors. ENT: No hearing loss, otalgia, otorrhea, rhinitis, rhinorrhea, hoarseness, or sore throat. CARDIOVASCULAR: Denies any exertional angina, dyspnea on exertion, orthopnea, paroxysmal nocturnal dyspnea, palpitations, life-threatening arrhythmias, claudication. PULMONARY: Denies any shortness of breath, cough, phlegm/sputum, hemoptysis, pleuritic chest pain. SLEEP: Denies morning headaches, daytime somnolence or napping. Denies difficulty falling asleep, staying asleep, waking from sleep. Denies knowledge of snoring. GASTROINTESTINAL: Progressive redness and swelling of the abdominal wall with purulent drainage GENITOURINARY: Denies frequency, urgency, nocturia, hematuria or incontinence (Storage/Irritative symptoms.) Low urinary stream, straining to void, urinary intermittency or hesitancy, splitting of the voiding stream, terminal dribbling. ENDOCRINOLOGIC: Denies polyuria, polydipsia, polyphagia or heat/cold intolerances. HEMATOLOGIC: Denies thrombophilia/previous clots, or coagulopathy/bleeding disorders. ONCOLOGIC: Denies personal history of malignancy. DERMATOLOGIC: As noted above PSYCHIATRIC: Denies any suicidal or homicidal ideation. Denies hallucinations. PHYSICAL EXAM GENERAL APPEARANCE: The patient is awake, alert, and oriented, in no acute car diopulmonary distress. NEUROLOGICAL: Cranial nerves II-XII grossly intact. Motor is 5/5 in bilateral upper and lower extremities proximal to distal. No sensory deficits. HEENT: Face is symmetric. Pupils are equal and reactive. Extraocular movements are intact. NECK: Supple. No JVD. No thyromegaly. No submental, submandibular, pre- /postauricular, occipital or supraclavicular lymphadenopathy. CHEST: Normal chest expansion. No Telemetry. LUNGS: Absence of any rales, rhonchi or any wheezing. CARDIOVASCULAR: Regular. S1 and S2 normal. No appreciable rubs, murmurs or gallops. ABDOMEN: Soft, erythema noted around the abdominal wall with significant swelling, induration noted around the umbilical/periumbilical region, small amount of purulent drainage noted coming from the umbilical region : Deferred. No Kidd. EXTREMITIES: Non-edematous and not cyanotic. No clubbing. Good capillary refill. Vital Signs (last 8hr) Date Time Temp Pulse Resp B/P (MAP) Pulse Ox O2 Delivery O2 Flow Rate FiO2 12/29/24 16:20 102 18 129/80 94 Room Air 12/29/24 16:05 99.3 101 18 128/77 93 Room Air 12/29/24 16:02 97.7 99 16 147/81 94 Room Air 12/29/24 15:57 94 15 144/78 93 Room Air 12/29/24 15:52 96 17 146/70 93 Room Air 12/29/24 15:47 102 16 141/82 93 Room Air 12/29/24 15:42 101 17 146/76 94 Room Air 12/29/24 15:37 105 16 142/83 95 Room Air 12/29/24 15:32 103 15 135/81 96 Room Air 12/29/24 15:27 109 18 144/79 99 Nonrebreathing Mask 10.0 12/29/24 15:22 109 17 140/78 99 Nonrebreathing Mask 10.0 12/29/24 15:17 97.7 108 16 133/86 99 Nonrebreathing Mask 10.0 12/29/24 11:30 98.4 94 18 134/78 98 Room Air LABS: Laboratory: Test 12/29/24 16:23 12/29/24 03:09 12/28/24 20:20 12/28/24 18:47 Range/Units Whole Blood Glucose 191 H 70-110 MG/DL White Blood Count 11.9 H 4.8-10.8 K/uL Red Blood Count 4.41 L 4.50-6.20 MIL/uL Hemoglobin 13.6 L 14.0-18.0 g/dL Hematocrit 38.4 L 42-54 % Mean Corpuscular Volume 87.1 79-99 fL Mean Corpuscular Hemoglobin 30.8 27.0-33.0 pg Mean Corpuscular Hemoglobin Concent 35.4 32.0-36.0 g/dL Red Cell Distribution Width 12.0 11.0-15.5 % Platelet Count 170 130-400 K/uL Mean Platelet Volume 9.9 7.5-10.5 fL Immature Granulocyte % (Auto) 0.8 0-1 % Neutrophils (%) (Auto) 74.9 40.0-77.0 % Lymphocytes (%) (Auto) 14.0 L 21.0-51.0 % Monocytes (%) (Auto) 9.5 3.0-13.0 % Eosinophils (%) (Auto) 0.5 0.0-8.0 % Basophils (%) (Auto) 0.3 0.0-5.0 % Neutrophils # (Auto) 8.9 H 1.8-7.7 K/uL Lymphocytes # (Auto) 1.7 1.0-4.8 K/uL Monocytes # (Auto) 1.1 H 0.1-1.0 K/uL Eosinophils # (Auto) 0.06 0.00-0.70 K/uL Basophils # (Auto) 0.03 0.00-0.20 K/uL Absolute Immature Granulocyte (auto 0.09 0-1 K/uL Nucleated Red Blood Cells 0.0 0.0-0.19 % Sodium Level 137 136-145 mmol/L Potassium Level 3.4 L 3.5-5.1 mmol/L Chloride Level 102 101-111 mmol/L Carbon Dioxide Level 25 21-32 mmol/L Blood Urea Nitrogen 13 7-18 mg/dL Creatinine 0.5 0.5-1.3 mg/dL Glomerular Filtration Rate Calc 127 >90 mL/min Random Glucose 210 H 70-105 mg/dL Total Calcium 7.9 L 8.5-10.1 mg/dL Magnesium Level 1.70 L 1.80-2.40 mg/dL C-Reactive Protein, Quantitative 187.50 H 0.5-3.0 mg/L Lactic Acid Level 1.5 0.8-2.5 mmol/L Blood Gas Specimen Type Arterial Arterial Blood pH 7.349 L 7.350-7.450 Arterial Blood Partial Pressure CO2 44 35-48 mmHg Arterial Blood Partial Pressure O2 < 45.0 *L 83.0-108.0 mmHg Arterial Blood HCO3 23.9 21.0-28.0 mmol/L Arterial Blood Oxygen Saturation 40.5 L 94.0-98.0 % Arterial Blood Base Excess -1.9 -2.0-3.0 mmol/L Hemoglobin (Blood Gas) 14.9 13.5-17.5 g/dL Sodium (Blood Gas) 139 136-145 MMOL/L Bedside Potassium (Blood Gas) 3.7 3.4-4.5 MMOL/L Bedside Chloride (Blood Gas) 102 98-107 MMOL/L Bedside Glucose (Blood Gas) 243 H 65-95 MG/DL Bedside Ionized Calcium (Blood Gas) 1.14 L 1.15-1.33 MMOL/L Bedside Lactic Acid (Blood Gas) 1.68 H 0.36-0.75 MMOL/L Blood Gas Temperature 37.0 35.5-37.0 CELSIUS Blood Gas Vent Mode RA ROOM AIR FiO2 21.0 % Blood Gas Specimen Comment BARBARA WALKER, VBG Test 12/28/24 18:24 12/28/24 16:12 12/28/24 16:09 Range/Units Whole Blood Ketones Quantitative 1.3 H 0.0-0.6 mmol/L Total Bilirubin 1.2 H 0.2-1.0 mg/dL Direct Bilirubin 0.2 0.0-0.3 mg/dL Aspartate Amino Transf (AST/SGOT) 9 L 10-37 U/L Alanine Aminotransferase (ALT/SGPT) 20 12-78 U/L Alkaline Phosphatase 88 50-136 U/L Total Protein 7.6 6.0-8.3 g/dL Albumin 3.1 L 3.5-5.0 g/dL Procalcitonin < 0.05 L 0.05-0.5 ng/mL Thyroid Stimulating Hormone (TSH) 1.62 0.36-3.74 uIU/mL White Cell Morphology Comment See comments Erythrocyte Sedimentation Rate 42 H 0-15 MM/HR Prothrombin Time 10.5 9.6-11.6 SEC Prothromb Time International Ratio 0.99 0.85-1.15 Activated Partial Thromboplast Time 31.6 26.3-35.5 SEC Hemoglobin A1c 11.4 H 4.0-6.0 % Estimated Average Glucose (eAG) 280 H 70-126 mg/dL Total Creatine Kinase 54 21-232 U/L Troponin I High Sensitivity < 4 L 4-75 ng/L Urine Color LIGHT-YELLOW YELLOW Urine Appearance CLEAR CLEAR Urine pH 5.5 5.0-8.0 Urine Specific [place] 1.033 H 1.001-1.031 Urine Protein NEGATIVE NEGATIVE mg/dL Urine Glucose (UA) >=1000 H NEGATIVE mg/dL Urine Ketones 40 H NEGATIVE mg/dL Urine Occult Blood NEGATIVE NEGATIVE Urine Nitrate NEGATIVE NEGATIVE Urine Bilirubin NEGATIVE NEGATIVE mg/dL Urine Urobilinogen 0.2 0.2-1.0 mg/dL Urine Leukocyte Esterase 25 H NEGATIVE Thierry/uL Urine RBC 2-5 H 0-1 /HPF Urine WBC 6-10 H 0-1 /HPF Urine Squamous Epithelial Cells FEW 0-2 /HPF Urine Bacteria None None Seen /HPF Urine Other Casts 1 None Seen /LPF Current Medications Medications (Trade) Dose Ordered Sig/Tom Route PRN Reason Start Time Stop Time Status Last Admin Dose Admin Acetaminophen (TYLenol 325MG TAB) 650 mg Q6H PRN PO MILD PAIN (1-3) 12/28/24 18:30 01/27/25 18:29 Albuterol (DUOneb) 1 udvial Q6H PRN IH SHORTNESS OF BREATH 12/28/24 18:30 01/27/25 18:29 Cefepime HCl (MAXipime 2 gm vial) 2 gm BID IVPB 12/29/24 09:00 01/08/25 08:59 12/29/24 10:39 2 GM Famotidine (Pepcid 20mg Vial) 20 mg BID IV 12/28/24 21:00 01/27/25 20:59 12/29/24 09:00 20 MG Hydralazine HCl (APRESOLine 20MG INJ) 5 mg Q6H PRN IV ADMINISTER FOR SBP > 160 12/28/24 19:00 01/27/25 18:59 Insulin Glargine (LANtus 100 UNITS/ML 10 ML VIAL) 15 units HS SQ 12/28/24 21:00 01/27/25 20:59 12/28/24 20:59 15 UNITS Insulin Human Regular (humuLIN R 100 UNIT/ML 3ML) INSULIN SLIDING SCAL... ACHS SQ 12/28/24 21:00 01/27/25 20:59 12/28/24 21:00 4 UNIT Ketorolac Tromethamine (toRADol) 15 mg Q12H PRN IV MODERATE PAIN (4-6) 12/28/24 18:30 12/30/24 18:30 12/28/24 19:54 15 MG Lactated Ringer's 1,000 ml @ 100 mls/hr Q10H IV 12/28/24 20:00 01/27/25 19:59 12/29/24 05:03 100 MLS/HR Magnesium Sulfate 50 ml @ 0 mls/hr PROTOCOL PRN IV MAG LEVEL BELOW 2.0 12/29/24 07:30 01/28/25 07:29 Morphine Sulfate (morPHINE 2MG SYG) 2 mg Q6H PRN IVP SEVERE PAIN (7-10) 12/28/24 18:30 01/04/25 18:29 Ondansetron HCl (zoFRAN 4MG INJ) 4 mg Q6H PRN IVP NAUSEA/VOMITING 12/28/24 18:30 01/27/25 18:29 Potassium Chloride 100 ml @ 50 mls/hr AD PRN IV POTASSIUM PROTOCOL 12/29/24 07:30 01/28/25 07:29 Vancomycin HCl 250 ml @ 125 mls/hr Q12H IV 12/29/24 08:00 01/08/25 07:59 12/29/24 09:00 125 MLS/HR Vancomycin HCl (Vancomycin Protocol) 1 each AD IV 12/28/24 18:30 01/11/25 18:29 DIAGNOSTICS / RADIOLOGY: [ ] ASSESSMENT: Complicated severe cellulitis involving periumbilical/umbilical region with involvement of the abdominal wall, POA Abdominal wall cellulitis with abscess, POA Sepsis secondary to complicated cellulitis involving the periumbilical region, POA Lactic acidosis, mild, POA, 2/2 sepsis Leukocytosis, POA Severe hyperglycemia, POA History of very poorly controlled type 2 diabetes mellitus with noncompliance with metformin therapy as outpatient, POA Hypokalemia Hypomagnesemia Obesity, POA Hypertension, POA PLAN: Complicated severe cellulitis involving periumbilical/umbilical region with involvement of the abdominal wall, POA Abdominal wall cellulitis with abscess, POA In the ED he was started on IV Vancomycin and IV Cefepime. Continue IV Vancomycin (day 1) and IV cefepime (day 1). General surgery was consulted and they recommended incision and drainage. ID was consulted and we are waiting for their recommendations. Sepsis secondary to complicated cellulitis involving the periumbilical region, POA Lactic acidosis, mild, POA, 2/2 sepsis Leukocytosis, POA Today his lactate level was decreased from 2.2 to 1.2, WBC is decreased from 13.7 to 11.9, CRP is decreased from 234 to 187.50 and procalcitonin is <0.05. In the ED he was started on IV Vancomycin and IV Cefepime. Continue IV Vancomycin (day 1) and IV cefepime (day 1). ID was consulted and we are waiting for their recommendations. Will repeat his labs tomorrow. Severe hyperglycemia, POA History of very poorly controlled type 2 diabetes mellitus with noncompliance with metformin therapy as outpatient, POA His HbA1c is 11.4. In the ER he is started on insulin regular and insulin lantus. He is on sliding scale. Endocrinology was consulted and we are waiting for their recommendations. Today his blood glucose is 191. Will repeat his labs tomorrow. Hypokalemia Today his potassium level is 3.4. We replaced his potassium level by giving KCl. Will repeat his potassium level tomorrow. Hypomagnesemia Today his magnesium level is 1.7. We replaced the magnesium level. Will repeat his labs tomorrow Obesity, POA His BMI is 40.6 Hypertension, POA Today his blood pressure is 129/80. Continue losartan. DVT prophylaxis with SCD. ATTESTATION BY PHYSICIAN I have seen and examined the patient. I reviewed the documentation, medical decision making, and treatment plan as noted by the resident provider above. I agree with the findings and plan of care. Balwinder Barron MD, AKSHAY MD Dec 29, 2024 17:30 NICANOR DANIELS MD Dec 30, 2024 06:02
[2024-12-30] VITALS (11 sets, daily range): BP systolic 118–150; BP diastolic 66–79; PULSE 80–101; RESP 18–20; TEMP 97.8–98.5; O2SAT 95–98
[2024-12-30 03:41] LABS: IMMATURE GRANULOCYTE ABSOLUTE 0.10 K/uL (0-1); NUCLEATED RED BLOOD CELLS 0.0 % (0.0-0.19); PLATELET COUNT (AUTO) 178 K/uL (130-400); RED BLOOD CELL COUNT(AUTO) 4.32 MIL/uL (4.50-6.20); RED CELL DISTRIBUTION WIDTH 11.9 % (11.0-15.5); WHITE BLOOD COUNT (AUTO) 11.2 K/uL (4.8-10.8)
[2024-12-30 04:01] LABS: CREATININE 0.6 mg/dL (0.5-1.3); GLOMERULAR FILTR. RATE CALC 120.0 mL/min (>90); GLUCOSE,RANDOM 184.0 mg/dL (70-105); SODIUM SERUM 141.0 mmol/L (136-145); UREA NITROGEN, BLOOD 8.0 mg/dL (7-18)
[2024-12-30] MEDS: PoTASSium chloRIDE 20MEQ ER 20 MEQ ERTAB PO PRN (04:51)
[2024-12-30] MEDS: MAGNESIUM 2GM PREMIX 50ML 50 ML IV PRN (06:15)
--- NOTE | 2024-12-30 07:33 | CONS ---
CONSULT NOTE: Endocrinology Consult Chief complaint: erythema, swelling increased drainage noted from the umbilical area. Reason for consult: uncontrolled dm-2 DOS: 12/30/24 HISTORY OF PRESENT ILLNESS: This is a 49-year-old male with underlying history of poorly controlled type 2 diabetes mellitus, obesity, hypertension who presented to the ER for further evaluation erythema, swelling increased drainage noted from the umbilical area. Patient states that symptoms initially started close to Monday night when he noticed some erythema involving the periumbilical region. Erythema has been progressive and [id number] abdominal pain as well. Redness has spread to the lateral quadrants of the abdomen patient reports noticing purulent drainage coming out as well. He went to [facility] and reports being treated with oral antibiotics with levofloxacin and clindamycin. Symptoms have not improved with oral antibiotics. Denies previous history of abscesses or skin infections. Reports being a diabetic for 10 years. He is supposed to be on metformin therapy which he has not taken for several days now. Sugars have been running high. Denies being on insulin therapy as outpatient. He has been having fevers of 101 F yesterday and has been taking Tylenol for pain control. On presentation to the hospital, patient was noted to be T-max of 97.5 F, heart rate of 110 with sinus tachycardia, blood pressure 140/90. [place] [address] with neutrophilia, hemoglobin 13.9, platelet count of [id number]. BMP showed findings of sodium of 136, potassium 4.0, chloride of 98, BUN of 22 , creatinine of 0.9, blood glucose of 362, lactic acid of two CRP of 234. , Home diabetic regimen: he does not take any meds for diabetes Hba1c 11.4% he does not watch his diet and does not check glucose at home. REVIEW OF SYSTEMS CONSTITUTIONAL: Be responsible coma malaise NEUROLOGICAL: Denies headache, amaurosis fugax, motor weakness, sensory deficit, vertigo/spinning sensation, gait abnormalities, or tremors. ENT: No hearing loss, otalgia, otorrhea, rhinitis, rhinorrhea, hoarseness, or sore throat. CARDIOVASCULAR: Denies any exertional angina, dyspnea on exertion, orthopnea, paroxysmal nocturnal dyspnea, palpitations, life-threatening arrhythmias, claudication. PULMONARY: Denies any shortness of breath, cough, phlegm/sputum, hemoptysis, pleuritic chest pain. SLEEP: Denies morning headaches, daytime somnolence or napping. Denies difficulty falling asleep, staying asleep, waking from sleep. Denies knowledge of snoring. GASTROINTESTINAL: Progressive redness and swelling of the abdominal wall with purulent drainage GENITOURINARY: Denies frequency, urgency, nocturia, hematuria or incontinence (Storage/Irritative symptoms.) Low urinary stream, straining to void, urinary intermittency or hesitancy, splitting of the voiding stream, terminal dribbling. ENDOCRINOLOGIC: Denies polyuria, polydipsia, polyphagia or heat/cold intolerances. HEMATOLOGIC: Denies thrombophilia/previous clots, or coagulopathy/bleeding disorders. ONCOLOGIC: Denies personal history of malignancy. DERMATOLOGIC: As noted above PSYCHIATRIC: Denies any suicidal or homicidal ideation. Denies hallucinations. PAST MEDICAL HISTORY: Hypertension, type 2 diabetes mellitus being diagnosed about 10 years ago, obesity, reports having lost about 80 lb over the last one year PAST SURGICAL HISTORY: Denies history of major surgeries PAST SOCIAL HISTORY: Denies active smoking or alcohol consumption, drinks about once a month, denies illicit drug use FAMILY HISTORY: Denies pertinent family history Allergies: No known drug allergies Home medications: Reports being on losartan for blood pressure control, and metformin, patient does not know the doses of the medication Coded Allergies: No Known Drug Allergies (Unverified Allergy, Unknown, 12/28/24) PHYSICAL EXAM GENERAL APPEARANCE: The patient is awake, alert, and oriented, in no acute cardiopulmonary distress. NEUROLOGICAL: Cranial nerves II-XII grossly intact. Motor is 5/5 in bilateral upper and lower extremities proximal to distal. No sensory deficits. HEENT: Face is symmetric. Pupils are equal and reactive. Extraocular movements are intact. NECK: Supple. No JVD. No thyromegaly. No submental, submandibular, pre- /postauricular, occipital or supraclavicular lymphadenopathy. CHEST: Normal chest expansion. No Telemetry. LUNGS: Absence of any rales, rhonchi or any wheezing. CARDIOVASCULAR: Regular. S1 and S2 normal. No appreciable rubs, murmurs or gallops. ABDOMEN: Soft, erythema noted around the abdominal wall with significant swelling, induration noted around the umbilical/periumbilical region, small amount of purulent drainage noted coming from the umbilical region : Deferred. No Kidd. EXTREMITIES: Non-edematous and not cyanotic. No clubbing. Good capillary refill. DIAGNOSTICS / RADIOLOGY: SERVICE 1604 REASON: wall cellulitis ORDERING PHYSICIAN: ALBA HICKMAN DO PROCEDURE: ABD PEL W - CT ABDOMEN/PELVIS W/CONTRAST EXAM: CT Abdomen and Pelvis withIV contrast CLINICAL HISTORY: Wall cellulitis. TECHNIQUE: Thin collimated axial CT images of the abdomen and pelvis were obtained with sagittal and coronal reformatted images also submitted. CT scan done according to ALARA (As Low As Reasonably Achievable). CONTRAST: Yes. COMPARISON: None. FINDINGS: Unremarkable visualized lung parenchyma. There is no focal abnormality appreciated within the pancreas, spleen, adrenals, or kidneys. Hepatic steatosis noted. Gallbladder is contracted. There is no obvious bowel wall thickening. Bowel loops are normal in caliber without evidence of obstruction or ileus. The appendix is normal. There is no abnormality within the urinary bladder. Unremarkable re-productive organs. Aorta is normal in caliber. No lymphadenopathy. No free fluid. There is no acute osseous abnormality. Mild multilevel spondylosis noted. Moderate to severe periumbilical inflammation noted. No gross drainable collection. No obvious peritoneal extension. IMPRESSIONS: Moderate to severe periumbilical cellulitis. No gross drainable collection. No obvious peritoneal extension. /[facility] DICTATED BY: JANETTE ANDREWS Jr., MD DATE: 12/28/241940 ELECTRONICALLY SIGNED BY: JANETTE ANDREWS Jr., MD DATE: 12/28/241940 ASSESSMENT: History of very poorly controlled type 2 diabetes mellitus with noncompliance with metformin therapy as outpatient, POA Home diabetic regimen: he does not take any meds for diabetes Hba1c 11.4% insulin adjusted for hyperglycemia he does not watch his diet and does not check glucose at home. Sepsis secondary to complicated cellulitis involving the periumbilical region and abdominal wall abscess s/p I&D, POA Complicated severe cellulitis involving periumbilical/umbilical region with involvement of the abdominal wall, POA r/o Developing abscess involving periumbilical/umbilical region, POA Lactic acidosis, mild, POA, 2/2 sepsis Leukocytosis, POA Severe hyperglycemia, POA as given above Obesity, POA Hypertension, POA PLAN: increase Lantus to 22 units daily and adjust for fasting glucose. increase Regular insulin to 10 units tid before meals and adjust for post- prandial glucose. Continue medium dose sliding scale insulin. Monitor glucose q x 6 hourly. Continue carb consistent diet. Keep glucose less than 180 mg/dl. Patient will need lantus 30 units daily, metformin 500 mg bid and glimepiride 4 mg daily at discharge. Thanks for allowing me to participate in patient care and will continue to follow up. Vital Signs 12/29/24 12/30/24 12/30/24 20:00 04:00 06:38 Temp 98.4 Pulse 93 Resp 20 B/P (MAP) 133/68 Pulse Ox 97 O2 Delivery N/Cannula Low lpm O2 Flow Rate 0 FiO2 21 Hematology Labs: Test 12/30/24 03:08 12/28/24 16:12 Range/Units White Blood Count 11.2 H 4.8-10.8 K/uL Red Blood Count 4.32 L 4.50-6.20 MIL/uL Hemoglobin 13.3 L 14.0-18.0 g/dL Hematocrit 37.8 L 42-54 % Mean Corpuscular Volume 87.5 79-99 fL Mean Corpuscular Hemoglobin 30.8 27.0-33.0 pg Mean Corpuscular Hemoglobin Concent 35.2 32.0-36.0 g/dL Red Cell Distribution Width 11.9 11.0-15.5 % Platelet Count 178 130-400 K/uL Mean Platelet Volume 9.7 7.5-10.5 fL Immature Granulocyte % (Auto) 0.9 0-1 % Neutrophils (%) (Auto) 70.8 40.0-77.0 % Lymphocytes (%) (Auto) 16.9 L 21.0-51.0 % Monocytes (%) (Auto) 10.6 3.0-13.0 % Eosinophils (%) (Auto) 0.4 0.0-8.0 % Basophils (%) (Auto) 0.4 0.0-5.0 % Neutrophils # (Auto) 7.9 H 1.8-7.7 K/uL Lymphocytes # (Auto) 1.9 1.0-4.8 K/uL Monocytes # (Auto) 1.2 H 0.1-1.0 K/uL Eosinophils # (Auto) 0.05 0.00-0.70 K/uL Basophils # (Auto) 0.05 0.00-0.20 K/uL Absolute Immature Granulocyte (auto 0.10 0-1 K/uL Nucleated Red Blood Cells 0.0 0.0-0.19 % White Cell Morphology Comment See comments Erythrocyte Sedimentation Rate 42 H 0-15 MM/HR Chemistry Labs: Test 12/30/24 06:00 12/30/24 03:08 12/28/24 18:24 12/28/24 16:12 Range/Units Whole Blood Glucose 216 H 70-110 MG/DL Sodium Level 141 136-145 mmol/L Potassium Level 3.4 L 3.5-5.1 mmol/L Chloride Level 107 101-111 mmol/L Carbon Dioxide Level 24 21-32 mmol/L Blood Urea Nitrogen 8 7-18 mg/dL Creatinine 0.6 0.5-1.3 mg/dL Glomerular Filtration Rate Calc 120 >90 mL/min Random Glucose 184 H 70-105 mg/dL Lactic Acid Level 1.3 0.8-2.5 mmol/L Total Calcium 7.8 L 8.5-10.1 mg/dL Magnesium Level 1.80 1.80-2.40 mg/dL C-Reactive Protein, Quantitative 201.20 H 0.5-3.0 mg/L Whole Blood Ketones Quantitative 1.3 H 0.0-0.6 mmol/L Total Bilirubin 1.2 H 0.2-1.0 mg/dL Direct Bilirubin 0.2 0.0-0.3 mg/dL Aspartate Amino Transf (AST/SGOT) 9 L 10-37 U/L Alanine Aminotransferase (ALT/SGPT) 20 12-78 U/L Alkaline Phosphatase 88 50-136 U/L Total Protein 7.6 6.0-8.3 g/dL Albumin 3.1 L 3.5-5.0 g/dL Procalcitonin < 0.05 L 0.05-0.5 ng/mL Thyroid Stimulating Hormone (TSH) 1.62 0.36-3.74 uIU/mL Hemoglobin A1c 11.4 H 4.0-6.0 % Estimated Average Glucose (eAG) 280 H 70-126 mg/dL Total Creatine Kinase 54 21-232 U/L Troponin I High Sensitivity < 4 L 4-75 ng/L Coagulation Labs: Test 12/28/24 16:12 Range/Units Prothrombin Time 10.5 9.6-11.6 SEC Prothromb Time International Ratio 0.99 0.85-1.15 Activated Partial Thromboplast Time 31.6 26.3-35.5 SEC Current Medications Medications (Trade) Dose Ordered Sig/Tom Route Start Time Stop Time Status Last Admin Dose Admin Cefepime HCl (MAXipime 2 gm vial) 2 gm BID IVPB 12/29/24 09:00 01/08/25 08:59 12/29/24 20:00 2 GM Famotidine (Pepcid 20mg Vial) 20 mg BID IV 12/28/24 21:00 01/27/25 20:59 12/29/24 19:52 20 MG Insulin Glargine (LANtus 100 UNITS/ML 10 ML VIAL) 15 units HS SQ 12/28/24 21:00 01/27/25 20:59 12/29/24 19:56 15 UNITS Insulin Human Regular (humuLIN R 100 UNIT/ML 3ML) 3 unit TIDAC SQ 12/30/24 07:30 01/29/25 07:29 12/30/24 06:17 3 UNIT Insulin Human Regular (humuLIN R 100 UNIT/ML 3ML) INSULIN SLIDING SCAL... ACHS SQ 12/28/24 21:00 12/29/24 21:02 DC 12/29/24 19:55 7 UNIT Insulin Human Regular (humuLIN R 100 UNIT/ML 3ML) INSULIN SLIDING SCAL... ACHS SQ 12/29/24 21:00 01/28/25 20:59 12/30/24 06:18 4 UNIT Lactated Ringer's 1,000 ml @ 100 mls/hr Q10H IV 12/28/24 20:00 01/27/25 19:59 12/30/24 04:48 100 MLS/HR Vancomycin HCl 250 ml @ 125 mls/hr Q12H IV 12/29/24 08:00 12/30/24 07:15 DC 12/29/24 19:51 125 MLS/HR Vancomycin HCl 250 ml @ 125 mls/hr Q12H IV 12/30/24 20:00 01/08/25 07:59 Vancomycin HCl (Vancomycin Protocol) 1 each AD IV 12/28/24 18:30 01/11/25 18:29 BRADFORD COSTELLO MD Dec 30, 2024 07:33
[2024-12-30] MEDS: VANCOMYCIN 2GM/500 ML BAG 500 ML IV ONE (07:58)
--- NOTE | 2024-12-30 13:53 | PN ---
[facility] PROGRESS NOTE Date of Service: Dec 30, 2024 Time of Service: 13:52 SUBJECTIVE: This is a 49-year-old male with underlying history of poorly controlled type 2 diabetes mellitus, obesity, hypertension who presented to the ER for further evaluation erythema, swelling increased drainage noted from the umbilical area. His symptoms initially started on night of 12/22/2024 when he noticed some erythema involving the periumbilical region. Erythema has been progressive since yesterday, has been having [id number] abdominal pain as well. Redness has spread to the lateral quadrants of the abdomen patient reports noticing purulent drainage coming out as well. He cleaned the area with soap and water. He went to [facility] and reports being treated with oral antibiotics with levofloxacin and clindamycin. Symptoms have not improved with oral antibiotics. Denies previous history of abscesses or skin infections. Reports being a diabetic for 10 years. He is supposed to be on metformin therapy which he has not taken for several days now. Sugars have been running high. Denies being on insulin therapy as outpatient. He has been having fevers of 101 F yesterday and has been taking Tylenol for pain control. On presentation to the hospital, patient was noted to be T-max of 97.5 F, heart rate of 110 with sinus tachycardia, blood pressure 140/90. [place] [address] with neutrophilia, hemoglobin 13.9, platelet count of [id number]. BMP showed findings of sodium of 136, potassium 4.0, chloride of 98, BUN of 22 , creatinine of 0.9, blood glucose of 362, lactic acid of two CRP of 234. His CT abdomen and pelvis showed moderate to severe periumbilical cellulitis. The patient is admitted for further treatment and management of progressive a bdominal wall cellulitis concerns for periumbilical abscess. He is started on IV cefepime and IV Vancomycin. ID, surgery and endocrinology were consulted. He is started on sliding scale insulin and basal Lantus. Case management was consulted as he is uninsured and has sepsis. 12/29/2024: He is seen in room 220. He has periumbilical pain and redness. He didn't eat for the past 3 days. He has fever last night but now he has no fever. His vitals are in the normal range except for heart rate is 102. His labs are in the normal range except for WBC is 11.9, Hb is 23.6, potassium is 3.4, Glucose is 191, calcium is 7.9, magnesium is 1.7, CRP is 187.50. General surgery saw him and they recommended incision and drainage. He is NPO. We replaced potassium and magnesium as they are low. His nasal screen is negative for MRSA and blood culture showed no growth after 24 hours. We are waiting for endocrinology, infectious disease recommendations and case management evaluation. Also we are waiting for lab reports. 12/30/24: Patient was seen in room 220 and was evaluated at the bedside. He had incision and drainage by surgery for his periumbilical cellulitis and is covered in dressing. Tissue samples were sent for aerobic and anaerobic culture and the final results are pending. His vitals have been stable and he had no acute events overnight. His white cell count is downtrending. Patient denies pain, fever, drainage from the incision site. Patient was asking if his infection could be caused by radioactive shrimp as his symptoms started 24 hours after consuming shrimp he bought from [employer]. Patient be downgraded to med surg unit today. Patient is continuing to receive IV vancomycin and cefepime and we will follow ID recommendations. REVIEW OF SYSTEMS CONSTITUTIONAL: Alert, oriented, obese, and healthy appearing CARDIOVASCULAR: Denies any exertional angina, dyspnea on exertion, orthopnea, paroxysmal nocturnal dyspnea, palpitations, life-threatening arrhythmias, claudication. PULMONARY: Denies any shortness of breath, cough, phlegm/sputum, hemoptysis, pleuritic chest pain. GASTROINTESTINAL: Improving redness and swelling of the abdominal wall post Incision and Drainage DERMATOLOGIC: As noted above PHYSICAL EXAM GENERAL APPEARANCE: The patient is awake, alert, and oriented, in no acute cardiopulmonary distress. NEUROLOGICAL: Cranial nerves II-XII grossly intact. Motor is 5/5 in bilateral upper and lower extremities proximal to distal. No sensory deficits. NECK: Supple. No JVD. CHEST: Normal chest expansion. No Telemetry. LUNGS: Absence of any rales, rhonchi or any wheezing. CARDIOVASCULAR: Regular. S1 and S2 normal. No appreciable rubs, murmurs or gallops. ABDOMEN: Soft, mild erythema noted around the abdominal wall, Incision site covered in dressing and mild tenderness to palpation. : Deferred. No Kidd. EXTREMITIES: Non-edematous and not cyanotic. No clubbing. Good capillary refill. Vital Signs (last 8hr) Date Time Temp Pulse Resp B/P (MAP) Pulse Ox O2 Delivery O2 Flow Rate FiO2 12/30/24 11:00 97.9 93 20 118/67 96 Room Air 12/30/24 10:15 96 Room Air* 0 21 12/30/24 07:00 98.4 92 20 134/71 94 Room Air 12/30/24 06:38 93 20 N/Cannula Low lpm 21 LABS: Laboratory: Test 12/30/24 10:53 12/30/24 06:31 12/30/24 03:08 12/28/24 18:47 Range/Units Whole Blood Glucose 222 H 70-110 MG/DL Bedside Glucose Comment Notified Nurse Vancomycin Level Trough 3.3 L 10.0-20.0 UG/ML White Blood Count 11.2 H 4.8-10.8 K/uL Red Blood Count 4.32 L 4.50-6.20 MIL/uL Hemoglobin 13.3 L 14.0-18.0 g/dL Hematocrit 37.8 L 42-54 % Mean Corpuscular Volume 87.5 79-99 fL Mean Corpuscular Hemoglobin 30.8 27.0-33.0 pg Mean Corpuscular Hemoglobin Concent 35.2 32.0-36.0 g/dL Red Cell Distribution Width 11.9 11.0-15.5 % Platelet Count 178 130-400 K/uL Mean Platelet Volume 9.7 7.5-10.5 fL Immature Granulocyte % (Auto) 0.9 0-1 % Neutrophils (%) (Auto) 70.8 40.0-77.0 % Lymphocytes (%) (Auto) 16.9 L 21.0-51.0 % Monocytes (%) (Auto) 10.6 3.0-13.0 % Eosinophils (%) (Auto) 0.4 0.0-8.0 % Basophils (%) (Auto) 0.4 0.0-5.0 % Neutrophils # (Auto) 7.9 H 1.8-7.7 K/uL Lymphocytes # (Auto) 1.9 1.0-4.8 K/uL Monocytes # (Auto) 1.2 H 0.1-1.0 K/uL Eosinophils # (Auto) 0.05 0.00-0.70 K/uL Basophils # (Auto) 0.05 0.00-0.20 K/uL Absolute Immature Granulocyte (auto 0.10 0-1 K/uL Nucleated Red Blood Cells 0.0 0.0-0.19 % Sodium Level 141 136-145 mmol/L Potassium Level 3.4 L 3.5-5.1 mmol/L Chloride Level 107 101-111 mmol/L Carbon Dioxide Level 24 21-32 mmol/L Blood Urea Nitrogen 8 7-18 mg/dL Creatinine 0.6 0.5-1.3 mg/dL Glomerular Filtration Rate Calc 120 >90 mL/min Random Glucose 184 H 70-105 mg/dL Lactic Acid Level 1.3 0.8-2.5 mmol/L Total Calcium 7.8 L 8.5-10.1 mg/dL Magnesium Level 1.80 1.80-2.40 mg/dL C-Reactive Protein, Quantitative 201.20 H 0.5-3.0 mg/L Blood Gas Specimen Type Arterial Arterial Blood pH 7.349 L 7.350-7.450 Arterial Blood Partial Pressure CO2 44 35-48 mmHg Arterial Blood Partial Pressure O2 < 45.0 *L 83.0-108.0 mmHg Arterial Blood HCO3 23.9 21.0-28.0 mmol/L Arterial Blood Oxygen Saturation 40.5 L 94.0-98.0 % Arterial Blood Base Excess -1.9 -2.0-3.0 mmol/L Hemoglobin (Blood Gas) 14.9 13.5-17.5 g/dL Sodium (Blood Gas) 139 136-145 MMOL/L Bedside Potassium (Blood Gas) 3.7 3.4-4.5 MMOL/L Bedside Chloride (Blood Gas) 102 98-107 MMOL/L Bedside Glucose (Blood Gas) 243 H 65-95 MG/DL Bedside Ionized Calcium (Blood Gas) 1.14 L 1.15-1.33 MMOL/L Bedside Lactic Acid (Blood Gas) 1.68 H 0.36-0.75 MMOL/L Blood Gas Temperature 37.0 35.5-37.0 CELSIUS Blood Gas Vent Mode RA ROOM AIR FiO2 21.0 % Blood Gas Specimen Comment BARBARA WALKER, VBG Test 12/28/24 18:24 12/28/24 16:12 12/28/24 16:09 Range/Units Whole Blood Ketones Quantitative 1.3 H 0.0-0.6 mmol/L Total Bilirubin 1.2 H 0.2-1.0 mg/dL Direct Bilirubin 0.2 0.0-0.3 mg/dL Aspartate Amino Transf (AST/SGOT) 9 L 10-37 U/L Alanine Aminotransferase (ALT/SGPT) 20 12-78 U/L Alkaline Phosphatase 88 50-136 U/L Total Protein 7.6 6.0-8.3 g/dL Albumin 3.1 L 3.5-5.0 g/dL Procalcitonin < 0.05 L 0.05-0.5 ng/mL Thyroid Stimulating Hormone (TSH) 1.62 0.36-3.74 uIU/mL White Cell Morphology Comment See comments Erythrocyte Sedimentation Rate 42 H 0-15 MM/HR Prothrombin Time 10.5 9.6-11.6 SEC Prothromb Time International Ratio 0.99 0.85-1.15 Activated Partial Thromboplast Time 31.6 26.3-35.5 SEC Hemoglobin A1c 11.4 H 4.0-6.0 % Estimated Average Glucose (eAG) 280 H 70-126 mg/dL Total Creatine Kinase 54 21-232 U/L Troponin I High Sensitivity < 4 L 4-75 ng/L Urine Color LIGHT-YELLOW YELLOW Urine Appearance CLEAR CLEAR Urine pH 5.5 5.0-8.0 Urine Specific [place] 1.033 H 1.001-1.031 Urine Protein NEGATIVE NEGATIVE mg/dL Urine Glucose (UA) >=1000 H NEGATIVE mg/dL Urine Ketones 40 H NEGATIVE mg/dL Urine Occult Blood NEGATIVE NEGATIVE Urine Nitrate NEGATIVE NEGATIVE Urine Bilirubin NEGATIVE NEGATIVE mg/dL Urine Urobilinogen 0.2 0.2-1.0 mg/dL Urine Leukocyte Esterase 25 H NEGATIVE Thierry/uL Urine RBC 2-5 H 0-1 /HPF Urine WBC 6-10 H 0-1 /HPF Urine Squamous Epithelial Cells FEW 0-2 /HPF Urine Bacteria None None Seen /HPF Urine Other Casts 1 None Seen /LPF Current Medications Medications (Trade) Dose Ordered Sig/Tom Route PRN Reason Start Time Stop Time Status Last Admin Dose Admin Acetaminophen (TYLenol 325MG TAB) 650 mg Q6H PRN PO MILD PAIN (1-3) 12/28/24 18:30 01/27/25 18:29 Albuterol (DUOneb) 1 udvial Q6H PRN IH SHORTNESS OF BREATH 12/28/24 18:30 01/27/25 18:29 Cefepime HCl (MAXipime 2 gm vial) 2 gm BID IVPB 12/29/24 09:00 01/08/25 08:59 12/30/24 08:57 2 GM Famotidine (Pepcid 20mg Vial) 20 mg BID IV 12/28/24 21:00 01/27/25 20:59 12/30/24 08:57 20 MG Hydralazine HCl (APRESOLine 20MG INJ) 5 mg Q6H PRN IV ADMINISTER FOR SBP > 160 12/28/24 19:00 01/27/25 18:59 Insulin Glargine (LANtus 100 UNITS/ML 10 ML VIAL) 15 units HS SQ 12/28/24 21:00 12/30/24 07:33 DC 12/29/24 19:56 15 UNITS Insulin Glargine (LANtus 100 UNITS/ML 10 ML VIAL) 20 units DAILY SQ 12/30/24 09:00 01/27/25 20:59 12/30/24 08:58 20 UNITS Insulin Human Regular (humuLIN R 100 UNIT/ML 3ML) 3 unit TIDAC SQ 12/30/24 07:30 12/30/24 11:47 DC 12/30/24 11:27 3 UNIT Insulin Human Regular (humuLIN R 100 UNIT/ML 3ML) 6 unit TIDAC SQ 12/30/24 17:00 01/29/25 16:59 Insulin Human Regular (humuLIN R 100 UNIT/ML 3ML) INSULIN SLIDING SCAL... ACHS SQ 12/28/24 21:00 12/29/24 21:02 DC 12/29/24 19:55 7 UNIT Insulin Human Regular (humuLIN R 100 UNIT/ML 3ML) INSULIN SLIDING SCAL... ACHS SQ 12/29/24 21:00 01/28/25 20:59 12/30/24 11:28 4 UNIT Ketorolac Tromethamine (toRADol) 15 mg Q12H PRN IV MODERATE PAIN (4-6) 12/28/24 18:30 12/30/24 18:30 12/28/24 19:54 15 MG Lactated Ringer's 1,000 ml @ 100 mls/hr Q10H IV 12/28/24 20:00 01/27/25 19:59 12/30/24 13:06 100 MLS/HR Magnesium Sulfate 50 ml @ 0 mls/hr PROTOCOL PRN IV MAG LEVEL BELOW 2.0 12/29/24 07:30 01/28/25 07:29 12/30/24 06:15 25 MLS/HR Morphine Sulfate (morPHINE 2MG SYG) 2 mg Q6H PRN IVP SEVERE PAIN (7-10) 12/28/24 18:30 01/04/25 18:29 Ondansetron HCl (zoFRAN 4MG INJ) 4 mg Q6H PRN IVP NAUSEA/VOMITING 12/28/24 18:30 01/27/25 18:29 Potassium Chloride 100 ml @ 50 mls/hr AD PRN IV POTASSIUM PROTOCOL 12/29/24 07:30 01/28/25 07:29 Potassium Chloride (K-Dur/Klor-Con 20meq) 20 meq AD PRN PO POTASSIUM PROTOCOL 12/30/24 05:00 01/29/25 04:59 12/30/24 06:27 20 MEQ Potassium Chloride (KCl 10% Elixir 20meq/15ml) 20 meq AD PRN PO POTASSIUM PROTOCOL 12/30/24 05:00 01/29/25 04:59 Vancomycin HCl 250 ml @ 125 mls/hr Q12H IV 12/29/24 08:00 12/30/24 07:15 DC 12/29/24 19:51 125 MLS/HR Vancomycin HCl 250 ml @ 125 mls/hr Q12H IV 12/30/24 20:00 01/08/25 07:59 Vancomycin HCl (Vancomycin Protocol) 1 each AD IV 12/28/24 18:30 01/11/25 18:29 DIAGNOSTICS / RADIOLOGY: [ ] ASSESSMENT: Complicated severe cellulitis involving periumbilical/umbilical region with involvement of the abdominal wall, POA Abdominal wall cellulitis with abscess, POA Sepsis secondary to complicated cellulitis involving the periumbilical region, POA Lactic acidosis, mild, POA, 2/2 sepsis Leukocytosis, POA Severe hyperglycemia, POA History of very poorly controlled type 2 diabetes mellitus with noncompliance with metformin therapy as outpatient, POA Hypokalemia Hypomagnesemia Obesity, POA Hypertension, POA PLAN: Complicated severe cellulitis involving periumbilical/umbilical region with involvement of the abdominal wall, POA Abdominal wall cellulitis with abscess, POA In the ED he was started on IV Vancomycin and IV Cefepime. Continue IV Vancomycin (day 2) and IV cefepime (day 2). General surgery performed incision and drainage. ID was consulted and we are waiting for their recommendations. Sepsis secondary to complicated cellulitis involving the periumbilical region, POA Lactic acidosis, mild, POA, 2/2 sepsis Leukocytosis, POA Today his lactate level was decreased from 2.2 to 1.3, WBC is decreased from 13.7 to 11.2, CRP is increased from 187.50 to 201.2 and procalcitonin is <0.05. In the ED he was started on IV Vancomycin and IV Cefepime. Continue IV Vancomycin (day 2) and IV cefepime (day 2). ID was consulted and we are waiting for their recommendations. Will repeat his labs tomorrow. Severe hyperglycemia, POA History of very poorly controlled type 2 diabetes mellitus with noncompliance with metformin therapy as outpatient, POA His HbA1c is 11.4. Endocrinology is consulted and we appreciate their following recommendations. Increase Lantus to 22 units daily and regular insulin to 10 units and adjust for fasting and post prandial glucose. Continue medium dose sliding scale insulin. Monitor glucose q x 6 hourly. Continue carb consistent diet. Keep glucose less than 180 mg/dl. Patient will need lantus 30 units daily, metformin 500 mg bid and glimepiride 4 mg daily at discharge Hypokalemia Today his potassium level is 3.4. We replaced his potassium level by giving KCl. Will repeat his potassium level tomorrow. Hypomagnesemia Today his magnesium level is 1.8. We replaced the magnesium level. Will repeat his labs tomorrow Obesity, POA His BMI is 40.6 Hypertension, POA Today his blood pressure is 134/71. Continue losartan. DVT prophylaxis with SCD. ATTESTATION BY PHYSICIAN I have seen and examined the patient. I reviewed the documentation, medical decision making, and treatment plan as noted by the resident provider above. I agree with the findings and plan of care. Balwinder Barron MD, HARSHAVARDHA MD Dec 30, 2024 13:53 JOHN BENEDICT MD Dec 30, 2024 22:15
--- NOTE | 2024-12-30 14:07 | NUR ---
DCP: HOME Pt states he lives in his home with friend Yadira Lubin [id number]. Discussed MPOA. Pt states his nearest living relative is Sejal Cook [id number] and she would be decision maker in ER. Pt never , no kids, no parents or siblings. Pt works at [employer], drives, completes his ADLS and IADLS without assistance. No DME or provider, HH or HD. Pt goes to [place] for medical care and medication. Pt denies wi needs and will return home at wi. Addendum: 12/30/24 at 1414 by FREDRICK YIP Amended: Links added.
--- NOTE | 2024-12-30 14:18 | NUR ---
[facility] Consult: Patient assessed by wound healing team. See wound assessment. Assessment and recommendations provided to primary nurse. Education provided. Wound care done. Addendum: 12/30/24 at 1525 by SARAH PRECIADO RN RN/ Amended: Links added.
--- NOTE | 2024-12-30 16:58 | PN ---
This is a 49-year-old male postop day one for incision and drainage of abdominal wall abscess by Dr. Liu Interval history: This 49-year-old male seen in ICU Patient is still in discomfort after dressing change Wound care nurse recommending Vashe with a Kerlix due to size of cavity Patient with a white count of 11.2 with a hemoglobin of 13.3 Patient continues with IV fluids and IV antibiotics Physical exam General: Awake alert and oriented Heart: Regular rate and rhythm} Lungs: Clear to auscultation no distress Abdomen: [Soft, nontender, nondistended Abscess site with packing in place Assessment : This is a 49-year-old male status post incision and drainage of abdominal wall abscess Plan: This point in time we will continue with Vashe Kerlix packing until cavity smaller enough for iodoform Patient to continue with current pain management Continue with the IV fluids and IV antibiotics Home health for potential assistance with wound care will be needed in the assistance with the case management will be appreciate Dr. Liu to be updated in patient's status and surgical team to follow patient closely Vitals/Labs Vital Signs Date Time Temp Pulse Resp B/P (MAP) Pulse Ox O2 Delivery O2 Flow Rate FiO2 12/30/24 11:00 97.9 93 20 118/67 96 Room Air 12/30/24 10:15 0 21 Laboratory Tests 12/30/24 03:08 Medications Current Medications Sodium Chloride 4,218 ml @ 1,406 mls/hr ONCE ONCE IV Last administered on 12/28/24at 17:39; Start 12/28/24 at 16:30; Stop 12/28/24 at 19:29; Status DC Vancomycin HCl 1 gm ONCE ONCE IV; Start 12/28/24 at 17:00; Stop 12/28/24 at 18:32; Status DC Cefepime HCl 1 gm ONCE ONCE IVPB Last administered on 12/28/24at 17:39; Start 12/28/24 at 17:00; Stop 12/28/24 at 17:01; Status DC Iohexol 75 ml STK-MED ONCE IV; Start 12/28/24 at 17:20; Stop 12/28/24 at 17:20; Status DC Lactated Ringer's 1,000 ml @ 100 mls/hr Q10H IV Last administered on 12/30/24at 13:06; Start 12/28/24 at 20:00; Stop 01/27/25 at 19:59 Vancomycin HCl 1 each AD IV; Start 12/28/24 at 18:30; Stop 01/11/25 at 18:29 Cefepime HCl 2 gm BID IVPB Last administered on 12/30/24at 08:57; Start 12/29/24 at 09:00; Stop 01/08/25 at 08:59 Acetaminophen 650 mg Q6H PRN PO; Start 12/28/24 at 18:30; Stop 01/27/25 at 18:29 Ondansetron HCl 4 mg Q6H PRN IVP; Start 12/28/24 at 18:30; Stop 01/27/25 at 18:29 Insulin Human Regular INSULIN SLIDING SCAL... ACHS SQ Last administered on 12/29/24at 19:55; Start 12/28/24 at 21:00; Stop 12/29/24 at 21:02; Status DC Vancomycin HCl 500 ml @ 250 mls/hr ONCE ONCE IV Last administered on 12/28/24at 18:40; Start 12/28/24 at 18:30; Stop 12/28/24 at 20:29; Status DC Famotidine 20 mg BID IV Last administered on 12/30/24at 08:57; Start 12/28/24 at 21:00; Stop 01/27/25 at 20:59 Albuterol 1 udvial Q6H PRN IH; Start 12/28/24 at 18:30; Stop 01/27/25 at 18:29 Vancomycin HCl 250 ml @ 125 mls/hr Q12H IV Last administered on 12/29/24at 19:51; Start 12/29/24 at 08:00; Stop 12/30/24 at 07:15; Status DC Morphine Sulfate 2 mg Q6H PRN IVP; Start 12/28/24 at 18:30; Stop 01/04/25 at 18:29 Ketorolac Tromethamine 15 mg Q12H PRN IV Last administered on 12/28/24at 19:54; Start 12/28/24 at 18:30; Stop 12/30/24 at 18:30 Insulin Glargine 15 units HS SQ Last administered on 12/29/24at 19:56; Start 12/28/24 at 21:00; Stop 12/30/24 at 07:33; Status DC Hydralazine HCl 5 mg Q6H PRN IV; Start 12/28/24 at 19:00; Stop 01/27/25 at 18:59 Potassium Bicarbonate 50 meq ONCE ONCE PO Last administered on 12/29/24at 05:14; Start 12/29/24 at 05:00; Stop 12/29/24 at 05:01; Status DC Magnesium Sulfate 50 ml @ 0 mls/hr ONCE ONCE IV Last administered on 12/29/24at 05:02; Start 12/29/24 at 05:00; Stop 12/29/24 at 05:01; Status DC Potassium Chloride 100 ml @ 50 mls/hr AD PRN IV; Start 12/29/24 at 07:30; Stop 01/28/25 at 07:29 Magnesium Sulfate 50 ml @ 0 mls/hr PROTOCOL PRN IV Last administered on 12/30/24at 06:15; Start 12/29/24 at 07:30; Stop 01/28/25 at 07:29 Lidocaine HCl 100 mg STK-MED ONCE .ROUTE; Start 12/29/24 at 14:08; Stop 12/29/24 at 14:08; Status DC Midazolam HCl 2 mg STK-MED ONCE .ROUTE; Start 12/29/24 at 14:08; Stop 12/29/24 at 14:09; Status DC Propofol 200 mg STK-MED ONCE IV; Start 12/29/24 at 14:09; Stop 12/29/24 at 14:09; Status DC Succinylcholine Chloride 200 mg STK-MED ONCE .ROUTE; Start 12/29/24 at 14:09; Stop 12/29/24 at 14:09; Status DC Rocuronium [place] 50 mg STK-MED ONCE .ROUTE; Start 12/29/24 at 14:09; Stop 12/29/24 at 14:09; Status DC Fentanyl Citrate 100 mcg STK-MED ONCE .ROUTE; Start 12/29/24 at 14:09; Stop 12/29/24 at 14:10; Status DC Morphine Sulfate 2 mg STK-MED ONCE .ROUTE Last administered on 12/29/24at 15:29; Start 12/29/24 at 15:27; Stop 12/29/24 at 15:28; Status DC Insulin Human Regular 3 unit TIDAC SQ Last administered on 12/30/24at 11:27; Start 12/30/24 at 07:30; Stop 12/30/24 at 11:47; Status DC Insulin Human Regular INSULIN SLIDING SCAL... ACHS SQ Last administered on 12/30/24at 11:28; Start 12/29/24 at 21:00; Stop 01/28/25 at 20:59 Potassium Chloride 20 meq AD PRN PO; Start 12/30/24 at 05:00; Stop 01/29/25 at 04:59 Potassium Chloride 20 meq AD PRN PO Last administered on 12/30/24at 06:27; Start 12/30/24 at 05:00; Stop 01/29/25 at 04:59 Vancomycin HCl 250 ml @ 125 mls/hr Q12H IV; Start 12/30/24 at 20:00; Stop 01/08/25 at 07:59 Vancomycin HCl 500 ml @ 250 mls/hr ONCE ONCE IV Last administered on 12/30/24at 07:58; Start 12/30/24 at 07:30; Stop 12/30/24 at 09:29; Status DC Insulin Glargine 20 units DAILY SQ Last administered on 12/30/24at 08:58; Start 12/30/24 at 09:00; Stop 01/27/25 at 20:59 Insulin Human Regular 6 unit TIDAC SQ; Start 12/30/24 at 17:00; Stop 01/29/25 at 16:59 MARIA DEL CARMEN FAUSTIN Jr. Dec 30, 2024 16:58
[2024-12-30] MEDS: VANCOMYCIN 1.75 GM/250 ML BAG 250 ML IV SCH (20:45)
--- NOTE | 2024-12-30 22:17 | PN ---
INFECTIOUS DISEASE PROGRESS NOTE Date of Service: Dec 30, 2024 SUBJECTIVE: This is a 49-year-old male patient with medical history of diabetes mellitus, hypertension, pancreatitis and obesity who presented to the hospital with chief complaint of pain, redness and swelling around the umbilical area. Patient took levofloxacin and clindamycin p.o. with no improvement and decided to come to emergency room for evaluation. Patient did mentioned that he is diabetic but does not check his blood sugar and is not taking any medications to control it. On admission patient had a WBC of 13.7 but no fever. A CT of the abdomen was obtained which showed moderate to severe periumbilical cellulitis but no fluid collection. General surgery was consulted for concern for abscess and patient underwent an incision and drainage of the periumbilical abscess on 12/29/2024. Patient has been started on vancomycin and cefepime and we will continue. We will follow up on the intraoperative wound cultures and antibiotics to be adjusted if necessary when culture is updated or finalized. REVIEW OF SYSTEMS CONSTITUTIONAL: Denies fever, chills, or fatigue. HEAD/FACE: No signs of trauma. EENT: Denies eye pain, blurred vision, double vision, or light sensitivity. RESPIRATORY: Denies shortness of breath, cough, wheezing CARDIOVASCULAR: Denies chest pain, palpitation, syncope. GASTROINTESTINAL/ABDOMINAL: Denies abdominal pain, constipation, diarrhea, nausea or vomiting. GENITOURINARY: Denies dysuria or hematuria. MUSCULOSKELETAL: Denies joint pain, tenderness, or trauma. INTEGUMENTARY: Denies rash or itchiness. Periumbilical swelling, pain and redness. NEUROLOGICAL/PSYCH: Denies anxiety, depression, heat or cold intolerance. PHYSICAL EXAM EYES: Anicteric. Pupils equal and reactive. HENT: No oral thrush seen, moist Oral mucosa NECK: Supple, no JVD or thyromegaly. LUNGS: Good air entry. No rales, no rhonchi. CARDIOVASCULAR: S1, S2 regular. No murmur heard. ABDOMEN: Soft, non tender, bowel sounds present, no organomegaly CENTRAL NERVOUS SYSTEM: Awake, alert, oriented x 3. SKIN: No rashes, no swelling. Periumbilical erythema. Abdominal wall abscess, status post I&D. LYMPHATICS: No peripheral lymphadenopathy. MUSCULOSKELETAL: No joint swelling, erythema or tenderness. EXTREMITIES: No cyanosis or clubbing. BACK: No deformity, no pressure ulcer. GENITOURINARY: No dysuria or hematuria. Vital Sign (Last 12 Hours) 12/30/24 12/30/24 12/30/24 12/30/24 10:15 11:00 16:00 18:41 Temp 97.9 97.9 97.9 Pulse 93 92 91 Resp 20 20 18 B/P (MAP) 118/67 150/79 128/74 Pulse Ox 96 96 97 97 O2 Delivery Room Air* Room Air Room Air Room Air O2 Flow Rate 0 FiO2 21 12/30/24 19:02 Pulse 90 Resp 20 O2 Delivery N/A Room Air FiO2 21 Intake & Output (last 24hrs) 12/29/24 12/29/24 12/30/24 15:00 23:00 07:00 Intake Total 350.0 ml 1340.0 ml Output Total 500 ml 300 ml 400 ml Balance -150.0 ml 1040.0 ml -400 ml LABS: Laboratory: Test 12/30/24 19:25 12/30/24 06:31 12/30/24 03:08 Range/Units Whole Blood Glucose 225 H 70-110 MG/DL Bedside Glucose Comment Notified Nurse Vancomycin Level Trough 3.3 L 10.0-20.0 UG/ML White Blood Count 11.2 H 4.8-10.8 K/uL Red Blood Count 4.32 L 4.50-6.20 MIL/uL Hemoglobin 13.3 L 14.0-18.0 g/dL Hematocrit 37.8 L 42-54 % Mean Corpuscular Volume 87.5 79-99 fL Mean Corpuscular Hemoglobin 30.8 27.0-33.0 pg Mean Corpuscular Hemoglobin Concent 35.2 32.0-36.0 g/dL Red Cell Distribution Width 11.9 11.0-15.5 % Platelet Count 178 130-400 K/uL Mean Platelet Volume 9.7 7.5-10.5 fL Immature Granulocyte % (Auto) 0.9 0-1 % Neutrophils (%) (Auto) 70.8 40.0-77.0 % Lymphocytes (%) (Auto) 16.9 L 21.0-51.0 % Monocytes (%) (Auto) 10.6 3.0-13.0 % Eosinophils (%) (Auto) 0.4 0.0-8.0 % Basophils (%) (Auto) 0.4 0.0-5.0 % Neutrophils # (Auto) 7.9 H 1.8-7.7 K/uL Lymphocytes # (Auto) 1.9 1.0-4.8 K/uL Monocytes # (Auto) 1.2 H 0.1-1.0 K/uL Eosinophils # (Auto) 0.05 0.00-0.70 K/uL Basophils # (Auto) 0.05 0.00-0.20 K/uL Absolute Immature Granulocyte (auto 0.10 0-1 K/uL Nucleated Red Blood Cells 0.0 0.0-0.19 % Sodium Level 141 136-145 mmol/L Potassium Level 3.4 L 3.5-5.1 mmol/L Chloride Level 107 101-111 mmol/L Carbon Dioxide Level 24 21-32 mmol/L Blood Urea Nitrogen 8 7-18 mg/dL Creatinine 0.6 0.5-1.3 mg/dL Glomerular Filtration Rate Calc 120 >90 mL/min Random Glucose 184 H 70-105 mg/dL Lactic Acid Level 1.3 0.8-2.5 mmol/L Total Calcium 7.8 L 8.5-10.1 mg/dL Magnesium Level 1.80 1.80-2.40 mg/dL C-Reactive Protein, Quantitative 201.20 H 0.5-3.0 mg/L ASSESSMENT: Abdominal wall abscess, s/p Incision and drainage. Periumbilical cellulitis. Leukocytosis. Failed outpatient antibiotic treatment. Diabetes mellitus. PLAN: Continue vancomycin per pharmacy protocol. Continue cefepime IV. Continue wound care as recommended by General surgery. Continue pain management. Continue GI prophylaxis. We will follow up on the cultures results. Thank you for allowing ID to participate in the care of this patient. This case was reviewed and discussed with my supervising physician and the above assessment and plan was formulated and agreed upon. ATTESTATION BY PHYSICIAN I have seen and examined the patient. I reviewed the documentation, medical decision making, and treatment plan as noted by the mid-level provider above. I agree with the findings and plan of care. KRIS MARTINS MD, [facility] Dec 30, 2024 22:17
[2024-12-31] VITALS (12 sets, daily range): BP systolic 122–139; BP diastolic 64–81; PULSE 82–92; RESP 18–20; TEMP 97.7–98.4; O2SAT 96–99
[2024-12-31 04:02] LABS: NUCLEATED RED BLOOD CELLS 0.0 % (0.0-0.19); PLATELET COUNT (AUTO) 195.0 K/uL (130-400); RED BLOOD CELL COUNT(AUTO) 4.3 MIL/uL (4.50-6.20); RED CELL DISTRIBUTION WIDTH 11.9 % (11.0-15.5); WHITE BLOOD COUNT (AUTO) 9.2 K/uL (4.8-10.8)
[2024-12-31 04:21] LABS: CREATININE 0.6 mg/dL (0.5-1.3); GLOMERULAR FILTR. RATE CALC 120.0 mL/min (>90); GLUCOSE,RANDOM 169.0 mg/dL (70-105); SODIUM SERUM 140.0 mmol/L (136-145); UREA NITROGEN, BLOOD 8.0 mg/dL (7-18)
[2024-12-31] MEDS: PoTASSium chl 10% ELIXIR 20MEQ 20 MEQ/15 ML UDCUP PO PRN (05:56)
--- NOTE | 2024-12-31 11:00 | PN ---
This is a 49-year-old male postop day two for incision drainage of abdominal wall abscess by Dr. Liu Interval history: This 49-year-old male seen in his room resting Wound Care to be performed later today Erythema around surgical site improving Patient continues with IV fluids and IV antibiotics WBCs 9.2 with a hemoglobin of 13.2 Physical exam General: Awake alert and oriented Heart: Regular rate and rhythm} Lungs: [Clear to auscultation no distress Abdomen: Packing in place from yesterday with improving erythema to surgical site Assessment : This is a 49-year-old male status post incision and drainage to abdominal wall abscess Plan: From surgical standpoint patient to continue with the IV fluids and IV antibiotics Await for antibiotic adjustments tailored to cultures once received Patient to be administered pain medication before dressing changed later today Family will need to be instructed on appropriate wound care for consideration for discharge Doctor Liu to be updated in patient's status and surgical team to follow patient closely Vitals/Labs Vital Signs Date Time Temp Pulse Resp B/P (MAP) Pulse Ox O2 Delivery O2 Flow Rate FiO2 12/31/24 07:20 84 18 N/A Room Air 21 12/31/24 07:00 98.4 124/64 98 12/30/24 23:51 0 Laboratory Tests 12/31/24 03:44 Medications Current Medications Sodium Chloride 4,218 ml @ 1,406 mls/hr ONCE ONCE IV Last administered on 12/28/24at 17:39; Start 12/28/24 at 16:30; Stop 12/28/24 at 19:29; Status DC Vancomycin HCl 1 gm ONCE ONCE IV; Start 12/28/24 at 17:00; Stop 12/28/24 at 18:32; Status DC Cefepime HCl 1 gm ONCE ONCE IVPB Last administered on 12/28/24at 17:39; Start 12/28/24 at 17:00; Stop 12/28/24 at 17:01; Status DC Iohexol 75 ml STK-MED ONCE IV; Start 12/28/24 at 17:20; Stop 12/28/24 at 17:20; Status DC Lactated Ringer's 1,000 ml @ 100 mls/hr Q10H IV Last administered on 12/31/24at 09:00; Start 12/28/24 at 20:00; Stop 01/27/25 at 19:59 Vancomycin HCl 1 each AD IV; Start 12/28/24 at 18:30; Stop 01/11/25 at 18:29 Cefepime HCl 2 gm BID IVPB Last administered on 12/31/24at 08:56; Start 12/29/24 at 09:00; Stop 01/08/25 at 08:59 Acetaminophen 650 mg Q6H PRN PO Last administered on 12/30/24at 21:09; Start 12/28/24 at 18:30; Stop 01/27/25 at 18:29 Ondansetron HCl 4 mg Q6H PRN IVP; Start 12/28/24 at 18:30; Stop 01/27/25 at 18:29 Insulin Human Regular INSULIN SLIDING SCAL... ACHS SQ Last administered on 12/29/24at 19:55; Start 12/28/24 at 21:00; Stop 12/29/24 at 21:02; Status DC Vancomycin HCl 500 ml @ 250 mls/hr ONCE ONCE IV Last administered on 12/28/24at 18:40; Start 12/28/24 at 18:30; Stop 12/28/24 at 20:29; Status DC Famotidine 20 mg BID IV Last administered on 12/31/24at 08:56; Start 12/28/24 at 21:00; Stop 01/27/25 at 20:59 Albuterol 1 udvial Q6H PRN IH; Start 12/28/24 at 18:30; Stop 01/27/25 at 18:29 Vancomycin HCl 250 ml @ 125 mls/hr Q12H IV Last administered on 12/29/24at 19:51; Start 12/29/24 at 08:00; Stop 12/30/24 at 07:15; Status DC Morphine Sulfate 2 mg Q6H PRN IVP; Start 12/28/24 at 18:30; Stop 01/04/25 at 18:29 Ketorolac Tromethamine 15 mg Q12H PRN IV Last administered on 12/28/24at 19:54; Start 12/28/24 at 18:30; Stop 12/30/24 at 18:30; Status DC Insulin Glargine 15 units HS SQ Last administered on 12/29/24at 19:56; Start 12/28/24 at 21:00; Stop 12/30/24 at 07:33; Status DC Hydralazine HCl 5 mg Q6H PRN IV; Start 12/28/24 at 19:00; Stop 01/27/25 at 18:59 Potassium Bicarbonate 50 meq ONCE ONCE PO Last administered on 12/29/24at 05:14; Start 12/29/24 at 05:00; Stop 12/29/24 at 05:01; Status DC Magnesium Sulfate 50 ml @ 0 mls/hr ONCE ONCE IV Last administered on 12/29/24at 05:02; Start 12/29/24 at 05:00; Stop 12/29/24 at 05:01; Status DC Potassium Chloride 100 ml @ 50 mls/hr AD PRN IV; Start 12/29/24 at 07:30; Stop 01/28/25 at 07:29 Magnesium Sulfate 50 ml @ 0 mls/hr PROTOCOL PRN IV Last administered on 12/30/24at 06:15; Start 12/29/24 at 07:30; Stop 01/28/25 at 07:29 Lidocaine HCl 100 mg STK-MED ONCE .ROUTE; Start 12/29/24 at 14:08; Stop 12/29/24 at 14:08; Status DC Midazolam HCl 2 mg STK-MED ONCE .ROUTE; Start 12/29/24 at 14:08; Stop 12/29/24 at 14:09; Status DC Propofol 200 mg STK-MED ONCE IV; Start 12/29/24 at 14:09; Stop 12/29/24 at 14:09; Status DC Succinylcholine Chloride 200 mg STK-MED ONCE .ROUTE; Start 12/29/24 at 14:09; Stop 12/29/24 at 14:09; Status DC Rocuronium [place] 50 mg STK-MED ONCE .ROUTE; Start 12/29/24 at 14:09; Stop 12/29/24 at 14:09; Status DC Fentanyl Citrate 100 mcg STK-MED ONCE .ROUTE; Start 12/29/24 at 14:09; Stop 12/29/24 at 14:10; Status DC Morphine Sulfate 2 mg STK-MED ONCE .ROUTE Last administered on 12/29/24at 15:29; Start 12/29/24 at 15:27; Stop 12/29/24 at 15:28; Status DC Insulin Human Regular 3 unit TIDAC SQ Last administered on 12/30/24at 11:27; Start 12/30/24 at 07:30; Stop 12/30/24 at 11:47; Status DC Insulin Human Regular INSULIN SLIDING SCAL... ACHS SQ Last administered on 12/30/24at 21:09; Start 12/29/24 at 21:00; Stop 01/28/25 at 20:59 Potassium Chloride 20 meq AD PRN PO Last administered on 12/31/24at 05:56; Start 12/30/24 at 05:00; Stop 01/29/25 at 04:59 Potassium Chloride 20 meq AD PRN PO Last administered on 12/31/24at 08:56; Start 12/30/24 at 05:00; Stop 01/29/25 at 04:59 Vancomycin HCl 250 ml @ 125 mls/hr Q12H IV Last administered on 12/31/24at 08:56; Start 12/30/24 at 20:00; Stop 01/08/25 at 07:59 Vancomycin HCl 500 ml @ 250 mls/hr ONCE ONCE IV Last administered on 12/30/24at 07:58; Start 12/30/24 at 07:30; Stop 12/30/24 at 09:29; Status DC Insulin Glargine 20 units DAILY SQ Last administered on 12/31/24at 08:48; Start 12/30/24 at 09:00; Stop 01/27/25 at 20:59 Insulin Human Regular 6 unit TIDAC SQ Last administered on 12/30/24at 17:16; Start 12/30/24 at 17:00; Stop 12/30/24 at 22:04; Status DC Insulin Human Regular 10 unit TIDAC SQ Last administered on 12/31/24at 05:55; Start 12/31/24 at 07:30; Stop 01/30/25 at 07:29 MARIA DEL CARMEN FAUSTIN Jr. Dec 31, 2024 11:00
--- NOTE | 2024-12-31 15:32 | PN ---
[facility] PROGRESS NOTE Date of Service: Dec 31, 2024 Time of Service: 15:20 SUBJECTIVE: This is a 49-year-old male with underlying history of poorly controlled type 2 diabetes mellitus, obesity, hypertension who presented to the ER for further evaluation erythema, swelling increased drainage noted from the umbilical area. His symptoms initially started on night of 12/22/2024 when he noticed some erythema involving the periumbilical region. Erythema has been progressive since yesterday, has been having [id number] abdominal pain as well. Redness has spread to the lateral quadrants of the abdomen patient reports noticing purulent drainage coming out as well. He cleaned the area with soap and water. He went to [facility] and reports being treated with oral antibiotics with levofloxacin and clindamycin. Symptoms have not improved with oral antibiotics. Denies previous history of abscesses or skin infections. Reports being a diabetic for 10 years. He is supposed to be on metformin therapy which he has not taken for several days now. Sugars have been running high. Denies being on insulin therapy as outpatient. He has been having fevers of 101 F yesterday and has been taking Tylenol for pain control. On presentation to the hospital, patient was noted to be T-max of 97.5 F, heart rate of 110 with sinus tachycardia, blood pressure 140/90. [place] [address] with neutrophilia, hemoglobin 13.9, platelet count of 875007. BMP showed findings of sodium of 136, potassium 4.0, chloride of 98, BUN of 22 , creatinine of 0.9, blood glucose of 362, lactic acid of two CRP of 234. His CT abdomen and pelvis showed moderate to severe periumbilical cellulitis. The patient is admitted for further treatment and management of progressive a bdominal wall cellulitis concerns for periumbilical abscess. He is started on IV cefepime and IV Vancomycin. ID, surgery and endocrinology were consulted. He is started on sliding scale insulin and basal Lantus. Case management was consulted as he is uninsured and has sepsis. 12/29/2024: He is seen in room 220. He has periumbilical pain and redness. He didn't eat for the past 3 days. He has fever last night but now he has no fever. His vitals are in the normal range except for heart rate is 102. His labs are in the normal range except for WBC is 11.9, Hb is 23.6, potassium is 3.4, Glucose is 191, calcium is 7.9, magnesium is 1.7, CRP is 187.50. General surgery saw him and they recommended incision and drainage. He is NPO. We replaced potassium and magnesium as they are low. His nasal screen is negative for MRSA and blood culture showed no growth after 24 hours. We are waiting for endocrinology, infectious disease recommendations and case management evaluation. Also we are waiting for lab reports. 12/30/24: Patient was seen in room 220 and was evaluated at the bedside. He had incision and drainage by surgery for his periumbilical cellulitis and is covered in dressing. Tissue samples were sent for aerobic and anaerobic culture and the final results are pending. His vitals have been stable and he had no acute events overnight. His white cell count is downtrending. Patient denies pain, fever, drainage from the incision site. Patient was asking if his infection could be caused by radioactive shrimp as his symptoms started 24 hours after consuming shrimp he bought from [employer]. Patient be downgraded to med surg unit today. Patient is continuing to receive IV vancomycin and cefepime and we will follow ID recommendations. 12/31/24: Patient was seen in the room 220 and was evaluated at the bedside. Patient's overnight vitals have been stable and reports no acute events. Patient is recovering well denies fever, chills, and only complains of mild ten derness at the incision site. Preliminary culture reports of the umbilical tissue show growth of Gram-positive cocci in chains and pairs, final results pending. Patient is continuing to receive vancomycin and cefepime. Dr. Johnson recommended increasing the Lantus to 22 units daily and adjust for fasting glucose and regular insulin to 10 units t.i.d. before meals to be adjusted for postprandial glucose. REVIEW OF SYSTEMS CONSTITUTIONAL: Alert, oriented, obese, and healthy appearing CARDIOVASCULAR: Denies any exertional angina, dyspnea on exertion, orthopnea, paroxysmal nocturnal dyspnea, palpitations, life-threatening arrhythmias, claudication. PULMONARY: Denies any shortness of breath, cough, phlegm/sputum, hemoptysis, pleuritic chest pain. GASTROINTESTINAL: Improving redness and swelling of the abdominal wall post Incision and Drainage DERMATOLOGIC: As noted above PHYSICAL EXAM GENERAL APPEARANCE: The patient is awake, alert, and oriented, in no acute cardiopulmonary distress. NEUROLOGICAL: Cranial nerves II-XII grossly intact. Motor is 5/5 in bilateral upper and lower extremities proximal to distal. No sensory deficits. NECK: Supple. No JVD. CHEST: Normal chest expansion. No Telemetry. LUNGS: Absence of any rales, rhonchi or any wheezing. CARDIOVASCULAR: Regular. S1 and S2 normal. No appreciable rubs, murmurs or gallops. ABDOMEN: Soft, mild erythema noted around the abdominal wall, Incision site covered in dressing and mild tenderness to palpation. : Deferred. No Kidd. EXTREMITIES: Non-edematous and not cyanotic. No clubbing. Good capillary refill. Vital Signs (last 8hr) Date Time Temp Pulse Resp B/P (MAP) Pulse Ox O2 Delivery O2 Flow Rate FiO2 12/31/24 12:45 98 Room Air* 0 21 12/31/24 11:00 97.9 90 20 125/75 96 Room Air LABS: Laboratory: Test 12/31/24 10:37 12/31/24 03:44 12/30/24 06:31 12/30/24 03:08 Range/Units Whole Blood Glucose 259 #H 70-110 MG/DL Bedside Glucose Comment Notified Nurse White Blood Count 9.2 4.8-10.8 K/uL Red Blood Count 4.30 L 4.50-6.20 MIL/uL Hemoglobin 13.2 L 14.0-18.0 g/dL Hematocrit 37.5 L 42-54 % Mean Corpuscular Volume 87.2 79-99 fL Mean Corpuscular Hemoglobin 30.7 27.0-33.0 pg Mean Corpuscular Hemoglobin Concent 35.2 32.0-36.0 g/dL Red Cell Distribution Width 11.9 11.0-15.5 % Platelet Count 195 130-400 K/uL Mean Platelet Volume 9.4 7.5-10.5 fL Nucleated Red Blood Cells 0.0 0.0-0.19 % Sodium Level 140 136-145 mmol/L Potassium Level 3.7 3.5-5.1 mmol/L Chloride Level 105 101-111 mmol/L Carbon Dioxide Level 25 21-32 mmol/L Blood Urea Nitrogen 8 7-18 mg/dL Creatinine 0.6 0.5-1.3 mg/dL Glomerular Filtration Rate Calc 120 >90 mL/min Random Glucose 169 H 70-105 mg/dL Total Calcium 8.2 L 8.5-10.1 mg/dL Vancomycin Level Trough 3.3 L 10.0-20.0 UG/ML Immature Granulocyte % (Auto) 0.9 0-1 % Neutrophils (%) (Auto) 70.8 40.0-77.0 % Lymphocytes (%) (Auto) 16.9 L 21.0-51.0 % Monocytes (%) (Auto) 10.6 3.0-13.0 % Eosinophils (%) (Auto) 0.4 0.0-8.0 % Basophils (%) (Auto) 0.4 0.0-5.0 % Neutrophils # (Auto) 7.9 H 1.8-7.7 K/uL Lymphocytes # (Auto) 1.9 1.0-4.8 K/uL Monocytes # (Auto) 1.2 H 0.1-1.0 K/uL Eosinophils # (Auto) 0.05 0.00-0.70 K/uL Basophils # (Auto) 0.05 0.00-0.20 K/uL Absolute Immature Granulocyte (auto 0.10 0-1 K/uL Lactic Acid Level 1.3 0.8-2.5 mmol/L Magnesium Level 1.80 1.80-2.40 mg/dL C-Reactive Protein, Quantitative 201.20 H 0.5-3.0 mg/L Current Medications Medications (Trade) Dose Ordered Sig/Tom Route PRN Reason Start Time Stop Time Status Last Admin Dose Admin Acetaminophen (TYLenol 325MG TAB) 650 mg Q6H PRN PO MILD PAIN (1-3) 12/28/24 18:30 01/27/25 18:29 12/30/24 21:09 650 MG Albuterol (DUOneb) 1 udvial Q6H PRN IH SHORTNESS OF BREATH 12/28/24 18:30 01/27/25 18:29 Cefepime HCl (MAXipime 2 gm vial) 2 gm BID IVPB 12/29/24 09:00 01/08/25 08:59 12/31/24 08:56 2 GM Famotidine (Pepcid 20mg Vial) 20 mg BID IV 12/28/24 21:00 01/27/25 20:59 12/31/24 08:56 20 MG Hydralazine HCl (APRESOLine 20MG INJ) 5 mg Q6H PRN IV ADMINISTER FOR SBP > 160 12/28/24 19:00 01/27/25 18:59 Insulin Glargine (LANtus 100 UNITS/ML 10 ML VIAL) 15 units HS SQ 12/28/24 21:00 12/30/24 07:33 DC 12/29/24 19:56 15 UNITS Insulin Glargine (LANtus 100 UNITS/ML 10 ML VIAL) 20 units DAILY SQ 12/30/24 09:00 01/27/25 20:59 12/31/24 08:48 20 UNITS Insulin Human Regular (humuLIN R 100 UNIT/ML 3ML) 3 unit TIDAC SQ 12/30/24 07:30 12/30/24 11:47 DC 12/30/24 11:27 3 UNIT Insulin Human Regular (humuLIN R 100 UNIT/ML 3ML) 6 unit TIDAC SQ 12/30/24 17:00 12/30/24 22:04 DC 12/30/24 17:16 6 UNIT Insulin Human Regular (humuLIN R 100 UNIT/ML 3ML) 10 unit TIDAC SQ 12/31/24 07:30 01/30/25 07:29 12/31/24 12:10 10 UNIT Insulin Human Regular (humuLIN R 100 UNIT/ML 3ML) INSULIN SLIDING SCAL... ACHS SQ 12/28/24 21:00 12/29/24 21:02 DC 12/29/24 19:55 7 UNIT Insulin Human Regular (humuLIN R 100 UNIT/ML 3ML) INSULIN SLIDING SCAL... ACHS SQ 12/29/24 21:00 01/28/25 20:59 12/31/24 12:10 8 UNIT Ketorolac Tromethamine (toRADol) 15 mg Q12H PRN IV MODERATE PAIN (4-6) 12/28/24 18:30 12/30/24 18:30 DC 12/28/24 19:54 15 MG Lactated Ringer's 1,000 ml @ 100 mls/hr Q10H IV 12/28/24 20:00 01/27/25 19:59 12/31/24 09:00 100 MLS/HR Magnesium Sulfate 50 ml @ 0 mls/hr PROTOCOL PRN IV MAG LEVEL BELOW 2.0 12/29/24 07:30 01/28/25 07:29 12/30/24 06:15 25 MLS/HR Morphine Sulfate (morPHINE 2MG SYG) 2 mg Q6H PRN IVP SEVERE PAIN (7-10) 12/28/24 18:30 01/04/25 18:29 12/31/24 13:48 2 MG Ondansetron HCl (zoFRAN 4MG INJ) 4 mg Q6H PRN IVP NAUSEA/VOMITING 12/28/24 18:30 01/27/25 18:29 Potassium Chloride 100 ml @ 50 mls/hr AD PRN IV POTASSIUM PROTOCOL 12/29/24 07:30 01/28/25 07:29 Potassium Chloride (K-Dur/Klor-Con 20meq) 20 meq AD PRN PO POTASSIUM PROTOCOL 12/30/24 05:00 01/29/25 04:59 12/31/24 08:56 20 MEQ Potassium Chloride (KCl 10% Elixir 20meq/15ml) 20 meq AD PRN PO POTASSIUM PROTOCOL 12/30/24 05:00 01/29/25 04:59 12/31/24 05:56 20 MEQ Vancomycin HCl 250 ml @ 125 mls/hr Q12H IV 12/29/24 08:00 12/30/24 07:15 DC 12/29/24 19:51 125 MLS/HR Vancomycin HCl 250 ml @ 125 mls/hr Q12H IV 12/30/24 20:00 01/08/25 07:59 12/31/24 08:56 125 MLS/HR Vancomycin HCl (Vancomycin Protocol) 1 each AD IV 12/28/24 18:30 01/11/25 18:29 DIAGNOSTICS / RADIOLOGY: [ ] ASSESSMENT: Complicated severe cellulitis involving periumbilical/umbilical region with involvement of the abdominal wall, POA Abdominal wall cellulitis with abscess, POA Sepsis secondary to complicated cellulitis involving the periumbilical region, POA Lactic acidosis, mild, resolved Leukocytosis, resolved Severe hyperglycemia, POA History of very poorly controlled type 2 diabetes mellitus with noncompliance with metformin therapy as outpatient, POA Hypokalemia Hypomagnesemia Obesity, POA Hypertension, POA PLAN: Complicated severe cellulitis involving periumbilical/umbilical region with involvement of the abdominal wall, POA Abdominal wall cellulitis with abscess, POA In the ED he was started on IV Vancomycin and IV Cefepime. Continue IV Vancomycin (day 3) and IV cefepime (day 3). General surgery performed incision and drainage. ID was consulted and we are waiting for their recommendations. Regular dressing changes and wound care Sepsis secondary to complicated cellulitis involving the periumbilical region, POA Lactic acidosis, mild, POA, resolved Leukocytosis, resolved Today his lactate level was decreased from 2.2 to 1.3, WBC is decreased from 13.7 to 11.2, CRP is increased from 187.50 to 201.2 and procalcitonin is <0.05. In the ED he was started on IV Vancomycin and IV Cefepime. Continue IV Vancomycin (day 2) and IV cefepime (day 2). ID was consulted and we are waiting for their recommendations. Will repeat his labs tomorrow. Severe hyperglycemia, POA History of very poorly controlled type 2 diabetes mellitus with noncompliance with metformin therapy as outpatient, POA His HbA1c is 11.4. WB glucose is 259 today Increase Lantus to 22 units daily and regular insulin to 10 units and adjust for fasting and post prandial glucose. Continue medium dose sliding scale insulin. Monitor glucose q x 6 hourly. Continue carb consistent diet. Keep glucose less than 180 mg/dl. Patient will need lantus 30 units daily, metformin 500 mg bid and glimepiride 4 mg daily at discharge Hypokalemia Today his potassium level is 3.7 We replaced his potassium level by giving KCl. Will repeat his potassium level tomorrow. Hypomagnesemia His magnesium level was 1.8. Will repeat his labs tomorrow Obesity, POA His BMI is 40.6 Hypertension, POA Today his blood pressure is 134/71. Continue losartan. DVT prophylaxis with SCD. ATTESTATION BY PHYSICIAN I have seen and examined the patient. I reviewed the documentation, medical decision making, and treatment plan as noted by the resident provider above. I agree with the findings and plan of care. Balwinder Barron MD, HARSHAVARDHA MD Dec 31, 2024 15:32
--- NOTE | 2024-12-31 16:41 | CONS ---
CONSULTATION NOTE Date of Service: Dec 31, 2024 Reason for Consultation: [ ] Requesting Physician: [ ] HISTORY OF PRESENT ILLNESS: [ ] REVIEW OF SYSTEMS CONSTITUTIONAL: Denies fever, chills, or fatigue. HEAD/FACE: No signs of trauma. EENT: Denies eye pain, blurred vision, double vision, or light sensitivity. RESPIRATORY: Denies shortness of breath, cough, wheezing CARDIOVASCULAR: Denies chest pain, palpitation, syncope GASTROINTESTINAL/ABDOMINAL: Denies abdominal pain, constipation, diarrhea, nausea or vomiting GENITOURINARY: Denies dysuria or hematuria. MUSCULOSKELETAL: Denies joint pain, tenderness, or trauma. INTEGUMENTARY: Denies rash or itchiness NEUROLOGICAL/PSYCH: Denies anxiety, depression, heat or cold intolerance. PAST MEDICAL HISTORY: [ ] PAST SURGICAL HISTORY: [ ] PAST SOCIAL HISTORY: [ ] FAMILY HISTORY: [ ] Coded Allergies: No Known Drug Allergies (Unverified Allergy, Unknown, 12/28/24) PHYSICAL EXAM EYES: Anicteric. Pupils equal and reactive. HENT: No oral thrush seen, moist Oral mucosa NECK: Supple, no JVD or thyromegaly. LUNGS: Good air entry. No rales, no rhonchi. CARDIOVASCULAR: S1, S2 regular. No murmur heard. ABDOMEN: Soft, non tender, bowel sounds present, no organomegaly CENTRAL NERVOUS SYSTEM: Awake, alert, oriented x 3. No focal deficits. SKIN: No rashes, no swelling. LYMPHATICS: No peripheral lymphadenopathy MUSCULOSKELETAL: No joint swelling, erythema or tenderness. EXTREMITIES: No cyanosis or clubbing BACK: No deformity, no pressure ulcer. GENITOURINARY: No dysuria or hematuria Vital Sign (Last 24 Hours) 12/31/24 12/31/24 12:45 16:00 Temp 98.2 Pulse 87 Resp 20 B/P (MAP) 132/71 Pulse Ox 97 O2 Delivery Room Air O2 Flow Rate 0 FiO2 21 Intake & Output (last 24hrs) 12/30/24 12/30/24 12/31/24 15:00 23:00 07:00 Intake Total 1080.0 ml 1100.0 ml Output Total 550 ml 1275 ml 300 ml Balance 530.0 ml -175.0 ml -300 ml LABS: Laboratory: Test 12/31/24 16:05 12/31/24 03:44 12/30/24 06:31 12/30/24 03:08 Range/Units Whole Blood Glucose 185 H 70-110 MG/DL Bedside Glucose Comment Notified Nurse White Blood Count 9.2 4.8-10.8 K/uL Red Blood Count 4.30 L 4.50-6.20 MIL/uL Hemoglobin 13.2 L 14.0-18.0 g/dL Hematocrit 37.5 L 42-54 % Mean Corpuscular Volume 87.2 79-99 fL Mean Corpuscular Hemoglobin 30.7 27.0-33.0 pg Mean Corpuscular Hemoglobin Concent 35.2 32.0-36.0 g/dL Red Cell Distribution Width 11.9 11.0-15.5 % Platelet Count 195 130-400 K/uL Mean Platelet Volume 9.4 7.5-10.5 fL Nucleated Red Blood Cells 0.0 0.0-0.19 % Sodium Level 140 136-145 mmol/L Potassium Level 3.7 3.5-5.1 mmol/L Chloride Level 105 101-111 mmol/L Carbon Dioxide Level 25 21-32 mmol/L Blood Urea Nitrogen 8 7-18 mg/dL Creatinine 0.6 0.5-1.3 mg/dL Glomerular Filtration Rate Calc 120 >90 mL/min Random Glucose 169 H 70-105 mg/dL Total Calcium 8.2 L 8.5-10.1 mg/dL Vancomycin Level Trough 3.3 L 10.0-20.0 UG/ML Immature Granulocyte % (Auto) 0.9 0-1 % Neutrophils (%) (Auto) 70.8 40.0-77.0 % Lymphocytes (%) (Auto) 16.9 L 21.0-51.0 % Monocytes (%) (Auto) 10.6 3.0-13.0 % Eosinophils (%) (Auto) 0.4 0.0-8.0 % Basophils (%) (Auto) 0.4 0.0-5.0 % Neutrophils # (Auto) 7.9 H 1.8-7.7 K/uL Lymphocytes # (Auto) 1.9 1.0-4.8 K/uL Monocytes # (Auto) 1.2 H 0.1-1.0 K/uL Eosinophils # (Auto) 0.05 0.00-0.70 K/uL Basophils # (Auto) 0.05 0.00-0.20 K/uL Absolute Immature Granulocyte (auto 0.10 0-1 K/uL Lactic Acid Level 1.3 0.8-2.5 mmol/L Magnesium Level 1.80 1.80-2.40 mg/dL C-Reactive Protein, Quantitative 201.20 H 0.5-3.0 mg/L DIAGNOSTICS / RADIOLOGY: [ ] PROBLEM LIST : Medical Problems: (1) Abdominal wall abscess ICD Codes: L02.211 - Cutaneous abscess of abdominal wall (2) Abdominal wall cellulitis ICD Codes: L03.311 - Cellulitis of abdominal wall (3) Hyperglycemia ICD Codes: R73.9 - Hyperglycemia, unspecified (4) Sepsis ICD Codes: A41.9 - Sepsis, unspecified organism PLAN: Wound care to abdominal wound-Cleanse with normal saline, pat dry, lightly pack with kerlix moistened with dakin's 1/4 strength, cover with gauze, and abd pad, secure with tape change daily and prn JOSS JOHNSON NP Dec 31, 2024 16:41
--- NOTE | 2024-12-31 19:17 | PN ---
INFECTIOUS DISEASE PROGRESS NOTE Date of Service: Dec 31, 2024 SUBJECTIVE: This is a 49-year-old male patient who was seen and examined at bedside in room 220. Patient is status post incision and drainage of the periumbilical abscess on 12/29/2024. The preliminary wound cultures is growing g positive cocci in chains, possibly related species. Remains afebrile, temperature 97.9. We will continue on vancomycin and cefepime and follow up on the final wound cultures results. PHYSICAL EXAM EYES: Anicteric. Pupils equal and reactive. HENT: No oral thrush seen, moist Oral mucosa NECK: Supple, no JVD or thyromegaly. LUNGS: Good air entry. No rales, no rhonchi. CARDIOVASCULAR: S1, S2 regular. No murmur heard. ABDOMEN: Soft, non tender, bowel sounds present, no organomegaly CENTRAL NERVOUS SYSTEM: Awake, alert, oriented x 3. SKIN: No rashes, no swelling. Periumbilical erythema. Abdominal wall abscess, status post I&D. LYMPHATICS: No peripheral lymphadenopathy. MUSCULOSKELETAL: No joint swelling, erythema or tenderness. EXTREMITIES: No cyanosis or clubbing. BACK: No deformity, no pressure ulcer. GENITOURINARY: No dysuria or hematuria. Vital Sign (Last 12 Hours) 12/31/24 12/31/24 12/31/24 12/31/24 07:20 11:00 12:45 16:00 Temp 97.9 98.2 Pulse 84 90 87 Resp 18 20 20 B/P (MAP) 125/75 132/71 Pulse Ox 96 98 97 O2 Delivery N/A Room Air Room Air Room Air* Room Air O2 Flow Rate 0 FiO2 21 21 12/31/24 18:37 Temp 98.2 Pulse 89 Resp 18 B/P (MAP) 134/76 Pulse Ox 97 O2 Delivery Room Air Intake & Output (last 24hrs) 12/30/24 12/30/24 12/31/24 15:00 23:00 07:00 Intake Total 1080.0 ml 1100.0 ml Output Total 550 ml 1275 ml 300 ml Balance 530.0 ml -175.0 ml -300 ml LABS: Laboratory: Test 12/31/24 16:05 12/31/24 03:44 12/30/24 06:31 12/30/24 03:08 Range/Units Whole Blood Glucose 185 H 70-110 MG/DL Bedside Glucose Comment Notified Nurse White Blood Count 9.2 4.8-10.8 K/uL Red Blood Count 4.30 L 4.50-6.20 MIL/uL Hemoglobin 13.2 L 14.0-18.0 g/dL Hematocrit 37.5 L 42-54 % Mean Corpuscular Volume 87.2 79-99 fL Mean Corpuscular Hemoglobin 30.7 27.0-33.0 pg Mean Corpuscular Hemoglobin Concent 35.2 32.0-36.0 g/dL Red Cell Distribution Width 11.9 11.0-15.5 % Platelet Count 195 130-400 K/uL Mean Platelet Volume 9.4 7.5-10.5 fL Nucleated Red Blood Cells 0.0 0.0-0.19 % Sodium Level 140 136-145 mmol/L Potassium Level 3.7 3.5-5.1 mmol/L Chloride Level 105 101-111 mmol/L Carbon Dioxide Level 25 21-32 mmol/L Blood Urea Nitrogen 8 7-18 mg/dL Creatinine 0.6 0.5-1.3 mg/dL Glomerular Filtration Rate Calc 120 >90 mL/min Random Glucose 169 H 70-105 mg/dL Total Calcium 8.2 L 8.5-10.1 mg/dL Vancomycin Level Trough 3.3 L 10.0-20.0 UG/ML Immature Granulocyte % (Auto) 0.9 0-1 % Neutrophils (%) (Auto) 70.8 40.0-77.0 % Lymphocytes (%) (Auto) 16.9 L 21.0-51.0 % Monocytes (%) (Auto) 10.6 3.0-13.0 % Eosinophils (%) (Auto) 0.4 0.0-8.0 % Basophils (%) (Auto) 0.4 0.0-5.0 % Neutrophils # (Auto) 7.9 H 1.8-7.7 K/uL Lymphocytes # (Auto) 1.9 1.0-4.8 K/uL Monocytes # (Auto) 1.2 H 0.1-1.0 K/uL Eosinophils # (Auto) 0.05 0.00-0.70 K/uL Basophils # (Auto) 0.05 0.00-0.20 K/uL Absolute Immature Granulocyte (auto 0.10 0-1 K/uL Lactic Acid Level 1.3 0.8-2.5 mmol/L Magnesium Level 1.80 1.80-2.40 mg/dL C-Reactive Protein, Quantitative 201.20 H 0.5-3.0 mg/L ASSESSMENT: Abdominal wall abscess, s/p Incision and drainage. Periumbilical cellulitis. Leukocytosis. Failed outpatient antibiotic treatment. Diabetes mellitus. PLAN: Continue vancomycin per pharmacy protocol. Continue cefepime IV. Continue wound care as recommended by General surgery. Continue pain management. Continue GI prophylaxis. We will follow up on the cultures results. This case was reviewed and discussed with my supervising physician and the above assessment and plan was formulated and agreed upon. ATTESTATION BY PHYSICIAN I have seen and examined the patient. I reviewed the documentation, medical decision making, and treatment plan as noted by the mid-level provider above. I agree with the findings and plan of care. KRIS MARTINS MD, MIRTA L [facility] Dec 31, 2024 19:17
[2024-12-31] MEDS: MELATONIN 5 MG TABLET PO PRN (23:43)
[2025-01-01 03:21] VITALS: BP 115/65; PULSE 83; RESP 18; TEMP 98.1
[2025-01-01 04:36] LABS: IMMATURE GRANULOCYTE ABSOLUTE 0.13 K/uL (0-1); NUCLEATED RED BLOOD CELLS 0.0 % (0.0-0.19); PLATELET COUNT (AUTO) 232 K/uL (130-400); RED BLOOD CELL COUNT(AUTO) 4.45 MIL/uL (4.50-6.20); RED CELL DISTRIBUTION WIDTH 11.9 % (11.0-15.5); WHITE BLOOD COUNT (AUTO) 8.5 K/uL (4.8-10.8)
[2025-01-01 04:56] LABS: CREATININE 0.6 mg/dL (0.5-1.3); GLOMERULAR FILTR. RATE CALC 120.0 mL/min (>90); GLUCOSE,RANDOM 252.0 mg/dL (70-105); SODIUM SERUM 136.0 mmol/L (136-145); UREA NITROGEN, BLOOD 8.0 mg/dL (7-18)
[2025-01-01 06:47] VITALS: RESP 18; O2SAT 96
[2025-01-01 08:00] VITALS: BP 113/87; PULSE 84; RESP 19; TEMP 98.9
[2025-01-01] MEDS: SODIUM HYPOCHLORITE 0.25% [HALF STRENGTH] 473 ML TOPICAL SOLN TP SCH (09:04)
[2025-01-01 09:29] VITALS: O2SAT 99
[2025-01-01 12:00] VITALS: BP 124/73; PULSE 79; RESP 20; TEMP 98.5
--- NOTE | 2025-01-01 15:05 | PN ---
INFECTIOUS DISEASE PROGRESS NOTE Date of Service: Jan 01, 2025 SUBJECTIVE: This is a 49-year-old male patient who was seen and examined at bedside in room 220. Patient is status post incision and drainage of the periumbilical abscess on 12/29/2024. The wound cultures results came back positive for Enterococcus faecalis, Bacteroides Vulgatus and Bacteroides Thetaiotaomicron. No fever, temperature is 98.4 and the WBC has trended down to 8.5. We will continue on vancomycin and cefepime and plan to discharged on oral antibiotics tomorrow if stable. PHYSICAL EXAM EYES: Anicteric. Pupils equal and reactive. HENT: No oral thrush seen, moist Oral mucosa NECK: Supple, no JVD or thyromegaly. LUNGS: Good air entry. No rales, no rhonchi. CARDIOVASCULAR: S1, S2 regular. No murmur heard. ABDOMEN: Soft, non tender, bowel sounds present, no organomegaly CENTRAL NERVOUS SYSTEM: Awake, alert, oriented x 3. SKIN: No rashes, no swelling. Periumbilical erythema. Abdominal wall abscess, status post I&D. LYMPHATICS: No peripheral lymphadenopathy. MUSCULOSKELETAL: No joint swelling, erythema or tenderness. EXTREMITIES: No cyanosis or clubbing. BACK: No deformity, no pressure ulcer. GENITOURINARY: No dysuria or hematuria. Vital Sign (Last 12 Hours) 01/01/25 01/01/25 01/01/25 01/01/25 03:21 06:47 08:00 09:29 Temp 98.1 99.0 Pulse 83 84 Resp 18 18 19 B/P (MAP) 115/65 113/87 Pulse Ox 92 97 99 O2 Delivery Room Air N/A Room Air Nasal Cannula Room Air* O2 Flow Rate 0 FiO2 21 21 01/01/25 12:00 Temp 98.4 Pulse 79 Resp 20 B/P (MAP) 124/73 Pulse Ox 98 O2 Delivery Room Air Intake & Output (last 24hrs) 12/31/24 12/31/24 01/01/25 15:00 23:00 07:00 Intake Total 350.0 ml 1340.0 ml Output Total 600 ml Balance 350.0 ml 740.0 ml LABS: Laboratory: Test 01/01/25 11:26 01/01/25 06:53 01/01/25 03:53 12/31/24 19:57 Range/Units Whole Blood Glucose 164 H 70-110 MG/DL Vancomycin Level Trough 10.2 # 10.0-20.0 UG/ML White Blood Count 8.5 4.8-10.8 K/uL Red Blood Count 4.45 L 4.50-6.20 MIL/uL Hemoglobin 13.5 L 14.0-18.0 g/dL Hematocrit 38.5 L 42-54 % Mean Corpuscular Volume 86.5 79-99 fL Mean Corpuscular Hemoglobin 30.3 27.0-33.0 pg Mean Corpuscular Hemoglobin Concent 35.1 32.0-36.0 g/dL Red Cell Distribution Width 11.9 11.0-15.5 % Platelet Count 232 130-400 K/uL Mean Platelet Volume 9.6 7.5-10.5 fL Immature Granulocyte % (Auto) 1.5 H 0-1 % Neutrophils (%) (Auto) 61.3 40.0-77.0 % Lymphocytes (%) (Auto) 26.1 21.0-51.0 % Monocytes (%) (Auto) 8.3 3.0-13.0 % Eosinophils (%) (Auto) 2.2 0.0-8.0 % Basophils (%) (Auto) 0.6 0.0-5.0 % Neutrophils # (Auto) 5.2 1.8-7.7 K/uL Lymphocytes # (Auto) 2.2 1.0-4.8 K/uL Monocytes # (Auto) 0.7 0.1-1.0 K/uL Eosinophils # (Auto) 0.19 0.00-0.70 K/uL Basophils # (Auto) 0.05 0.00-0.20 K/uL Absolute Immature Granulocyte (auto 0.13 0-1 K/uL Nucleated Red Blood Cells 0.0 0.0-0.19 % Sodium Level 136 136-145 mmol/L Potassium Level 3.6 3.5-5.1 mmol/L Chloride Level 102 101-111 mmol/L Carbon Dioxide Level 26 21-32 mmol/L Blood Urea Nitrogen 8 7-18 mg/dL Creatinine 0.6 0.5-1.3 mg/dL Glomerular Filtration Rate Calc 120 >90 mL/min Random Glucose 252 H 70-105 mg/dL Total Calcium 8.3 L 8.5-10.1 mg/dL Magnesium Level 1.80 1.80-2.40 mg/dL Bedside Glucose Comment Notified Nurse ASSESSMENT: Abdominal wall abscess, s/p Incision and drainage. Periumbilical cellulitis. Leukocytosis. Failed outpatient antibiotic treatment. Diabetes mellitus. PLAN: Continue vancomycin per pharmacy protocol. Continue cefepime IV. Continue wound care as recommended by General surgery. Continue pain management. Continue GI prophylaxis. Plan to discharge tomorrow on oral antibiotics if stable. This case was reviewed and discussed with my supervising physician and the above assessment and plan was formulated and agreed upon. ATTESTATION BY PHYSICIAN I have seen and examined the patient. I reviewed the documentation, medical decision making, and treatment plan as noted by the mid-level provider above. I agree with the findings and plan of care. KRIS MARTINS MD, MIRTA L [facility] Jan 01, 2025 15:05
--- NOTE | 2025-01-01 15:20 | DS ---
Discharge Summary Hospital Course Summary: A 49-year-old male with underlying history of poorly controlled type 2 diabetes mellitus, obesity, hypertension who presented to the ER for further evaluation erythema, swelling increased drainage noted from the umbilical area. Patient states he noticed some erythema, pain and induration involving the per iumbilical region. Erythema has been progressive since yesterday, has been having [id number] abdominal pain as well. Redness has spread to the lateral quadrants of the abdomen patient reports noticing purulent drainage coming out as well. He went to [facility] and reports being treated with oral antibiotics with levofloxacin and clindamycin. Symptoms have not improved with oral antibiotics. He denies previous history of abscesses or skin infections. He has a history of uncontrolled diabetes and medication noncompliance. He has been having fevers of 101 F yesterday and has been taking Tylenol for pain control. On presentation to the hospital, patient was noted to be T-max of 97.5 F, heart rate of 110 with sinus tachycardia, blood pressure 140/90. [place] [address] with neutrophilia, hemoglobin 13.9, platelet count of 345241. BMP showed findings of sodium of 136, potassium 4.0, chloride of 98, BUN of 22 , creatinine of 0.9, blood glucose of 362, lactic acid of two CRP of 234. Patient underwent further evaluation with CT abdomen pelvis with IV contrast that showed moderate to severe periumbilical cellulitis. Urine cultures, blood cultures, abdominal abscess tissue cultures were sent. He was started on IV cefepime and vancomycin. A general surgery consult has been placed who recommended incision and drainage, which he underwent on 12/29/2024 and has been recovering well. His periumbilical erythema has progressively reduced and reports decreasing pain. His white cell count has reduced, patient was afebrile. He had regular dressing changes. His HB A1c was 11.1 And patient admits to poor compliance to diet and medication noncompliance. While he was in the hospital endocrinology consult was placed who recommended managing his diabetes mellitus with 25 units of insulin Lantus and 12 units of insulin regular. Final urine cultures and blood cultures were negative however abscess culture showed growth of Enterococcus faecalis and Bacteroides species. Patient was cleared for discharge with a prescription of Augmentin 850 mg for 14 days. Patient was also discharged on insulin Lantus 30 units once daily, metformin 500 mg b.i.d., glimepiride 4 mg once daily. Patient was thoroughly educated on importance of diet and medication compliance in managing diabetes to prevent further complications. Patient was given education on proper wound care with which his advanced manufacturing technician will help him. Patient was given a follow up with his PCP in 2-3 days, advised to follow up with Dr. Johnson in 2 weeks, Dr. Liu in 1 week, and follow up with wound care Dr. Gay in 1 week. Patient was advised to monitor for signs of infection, increasing pain, discharge, increasing erythema, and return to ED if any of the symptoms are noted. Scorekeeper(s): Dr. Johnson, survey engineer Dr. Berg, infectious Disease Dr. Liu, general surgeon General surgery consult was placed for periumbilical erythema, CT scan showed cellulitis with no clear fluid collection. They recommended incision and drainage of the cellulitis and regular dressing change and follow up post discharge in his clinic. An endocrinology consult was placed for uncontrolled diabetes resulting in cellulitis of periumbilical area. His blood glucose levels were managed with insulin [id number] units and 10 units of regular insulin t.i.d. before meals and were subsequently adjusted. Dr. Johnson recommended at the time of discharge patient will need Lantus 30 units daily, metformin 500 mg b.i.d. and glimepiride 4 mg daily. Infectious disease consult was placed and they recommended continuing vancomycin cefepime until the culture results of the tissue came back. The culture showed growth of Enterococcus faecalis and Bacteroides species. Finally patient was gi cammy a prescription of Augmentin for 14 days and was cleared for discharge. Procedure(s): PATIENT: HENRY BALDWIN MR#: [id number] : 1975 SEX: M AGE: 49 LOCATION: [facility] ORDER 1611 STATUS: ADM IN REPORT#: [id number] SERVICE 1608 REASON: wall cellulitis ORDERING PHYSICIAN: ALBA HICKMAN DO PROCEDURE: ABD PEL W - CT ABDOMEN/PELVIS W/CONTRAST EXAM: CT Abdomen and Pelvis withIV contrast CLINICAL HISTORY: Wall cellulitis. TECHNIQUE: Thin collimated axial CT images of the abdomen and pelvis were obtained with sagittal and coronal reformatted images also submitted. CT scan done according to ALARA (As Low As Reasonably Achievable). CONTRAST: Yes. COMPARISON: None. FINDINGS: Unremarkable visualized lung parenchyma. There is no focal abnormality appreciated within the pancreas, spleen, adrenals, or kidneys. Hepatic steatosis noted. Gallbladder is contracted. There is no obvious bowel wall thickening. Bowel loops are normal in caliber without evidence of obstruction or ileus. The appendix is normal. There is no abnormality within the urinary bladder. Unremarkable re-productive organs. Aorta is normal in caliber. No lymphadenopathy. No free fluid. There is no acute osseous abnormality. Mild multilevel spondylosis noted. Moderate to severe periumbilical inflammation noted. No gross drainable collection. No obvious peritoneal extension. IMPRESSIONS: Moderate to severe periumbilical cellulitis. No gross drainable collection. No obvious peritoneal extension. /Selah DICTATED BY: JANETTE ANDREWS Jr., MD DATE: 12/28/241940 ELECTRONICALLY SIGNED BY: JANETTE ANDREWS Jr., MD DATE: 12/28/241940 Assessment/Plan: ASSESSMENT: Complicated severe cellulitis involving periumbilical/umbilical region with involvement of the abdominal wall, resolving Sepsis secondary to complicated cellulitis involving the periumbilical region, resolved Lactic acidosis, mild, resolved Leukocytosis, resolved Severe hyperglycemia, resolved History of very poorly controlled type 2 diabetes mellitus with noncompliance with metformin therapy as outpatient, Hypokalemia, resolved Hypomagnesemia, resolved Obesity Hypertension Discharge Instructions: ADMISSION DATE : DISCHARGE DATE: DISPOSITION : Home CONDITION : Stable SOFTWARE VALIDATION ENGINEER(S) : FOLLOW UP APPOINTMENT(S) : f/u with PCP in one 2-3 days, f/u with in one week PROCEDURES: IMAGING (S) : report attached to summary MICROBIOLOGY : report attached to summary ACTIVITY : ad nida HOME MEDICATIONS : Continued Home Medications: Active Scripts Ibuprofen (Ibuprofen 800 mg Tab) 800 Mg Tab, 800 MG PO Q6H PRN for PAIN, #20 TAB Prov:JOHN BENEDICT MD 01/01/25 Insulin Glargine,Hum.rec.anlog (Lantus Solostar) 100 Unit/Ml (3 Ml) Insuln.pen, 30 UNIT SQ HS for 30 Days, #15 ML 0 Refills Prov:JOHN BENEDICT MD 01/01/25 Metformin HCl (Metformin HCl) 500 Mg Tablet, 1 TAB PO BID for 30 Days, #60 TAB 0 Refills Prov:JOHN BENEDICT MD 01/01/25 Glimepiride (Glimepiride) 4 Mg Tablet, 1 TAB PO DAILY for 30 Days, #30 TAB 0 Refills Prov:JOHN BENEDICT MD 01/01/25 Reported Medications [Tribedoce Complex B] No Conflict Check, PO BID 12/29/24 Losartan Potassium (Losartan Potassium) 50 Mg Tablet, 1 TAB PO DAILY for 30 Days, #30 TAB 0 Refills 12/29/24 Discontinued Reported Medications Clindamycin Phosphate (Clindamycin Phosphate) 1 % Gel..gram., 1 APPL TP BID for 30 Days, #60 GM 0 Refills apply to affected area(s) 12/29/24 Levofloxacin (Levofloxacin) 750 Mg Tablet, 1 TAB PO DAILY for 7 Days, #7 TAB 0 Refills 12/29/24 Clindamycin HCl (Clindamycin HCl) 300 Mg Capsule, 1 CAP PO BID for 7 Days, #14 CAP 0 Refills 12/29/24 New Medications: Glimepiride (Glimepiride) 4 Mg Tablet 1 TAB PO DAILY for 30 Days, #30 TAB 0 Refills Ibuprofen (Ibuprofen 800 mg Tab) 800 Mg Tab 800 MG PO Q6H PRN for PAIN, #20 TAB Insulin Glargine,Hum.rec.anlog (Lantus Solostar) 100 Unit/Ml (3 Ml) Insuln.pen 30 UNIT SQ HS for 30 Days, #15 ML 0 Refills Metformin HCl (Metformin HCl) 500 Mg Tablet 1 TAB PO BID for 30 Days, #60 TAB 0 Refills Continued Medications: Losartan Potassium (Losartan Potassium) 50 Mg Tablet 1 TAB PO DAILY for 30 Days, #30 TAB 0 Refills [Tribedoce Complex B] () PO BID Discontinued Medications: Clindamycin HCl (Clindamycin HCl) 300 Mg Capsule 1 CAP PO BID for 7 Days, #14 CAP 0 Refills Clindamycin Phosphate (Clindamycin Phosphate) 1 % Gel..gram. 1 APPL TP BID for 30 Days, #60 GM 0 Refills apply to affected area(s) Levofloxacin (Levofloxacin) 750 Mg Tablet 1 TAB PO DAILY for 7 Days, #7 TAB 0 Refills Time spent arranging discharge: 1-30 minutes ATTESTATION BY PHYSICIAN I have seen and examined the patient. I reviewed the documentation, medical decision making, and treatment plan as noted by the resident provider above. I agree with the findings and plan of care. Balwinder Barron MD, HARSHAVARDHA MD Jan 01, 2025 15:20
[2025-01-01] MEDS ORDERED: INSU3INS3 SQ ×2 (15:28→16:32)
[2025-01-01] MEDS ORDERED: METF-444 PO ×2 (15:28→16:32)
[2025-01-01] MEDS ORDERED: GLIM4TAB36 PO ×2 (15:28→16:32)
[2025-01-01] MEDS ORDERED: IBUP-2077 PO ×2 (15:30→16:32)
--- NOTE | 2025-01-01 20:52 | PN ---
Endocrinology progress note DOS: 01/01/25 ,subjective: glucose are improving Home diabetic regimen: he does not take any meds for diabetes Hba1c 11.4% he does not watch his diet and does not check glucose at home. PAST MEDICAL HISTORY: Hypertension, type 2 diabetes mellitus being diagnosed about 10 years ago, obesity, reports having lost about 80 lb over the last one year PAST SURGICAL HISTORY: Denies history of major surgeries PAST SOCIAL HISTORY: Denies active smoking or alcohol consumption, drinks about once a month, denies illicit drug use FAMILY HISTORY: Denies pertinent family history Allergies: No known drug allergies Home medications: Reports being on losartan for blood pressure control, and metformin, patient does not know the doses of the medication Coded Allergies: No Known Drug Allergies (Unverified Allergy, Unknown, 12/28/24) DIAGNOSTICS / RADIOLOGY: SERVICE 1608 REASON: wall cellulitis ORDERING PHYSICIAN: ALBA HICKMAN DO PROCEDURE: ABD PEL W - CT ABDOMEN/PELVIS W/CONTRAST EXAM: CT Abdomen and Pelvis withIV contrast CLINICAL HISTORY: Wall cellulitis. TECHNIQUE: Thin collimated axial CT images of the abdomen and pelvis were obtained with sagittal and coronal reformatted images also submitted. CT scan done according to ALARA (As Low As Reasonably Achievable). CONTRAST: Yes. COMPARISON: None. FINDINGS: Unremarkable visualized lung parenchyma. There is no focal abnormality appreciated within the pancreas, spleen, adrenals, or kidneys. Hepatic steatosis noted. Gallbladder is contracted. There is no obvious bowel wall thickening. Bowel loops are normal in caliber without evidence of obstruction or ileus. The appendix is normal. There is no abnormality within the urinary bladder. Unremarkable re-productive organs. Aorta is normal in caliber. No lymphadenopathy. No free fluid. There is no acute osseous abnormality. Mild multilevel spondylosis noted. Moderate to severe periumbilical inflammation noted. No gross drainable collection. No obvious peritoneal extension. IMPRESSIONS: Moderate to severe periumbilical cellulitis. No gross drainable collection. No obvious peritoneal extension. /[facility] DICTATED BY: JANETTE ANDREWS Jr., MD DATE: 12/28/241940 ELECTRONICALLY SIGNED BY: JANETTE ANDREWS Jr., MD DATE: 12/28/241940 ASSESSMENT: History of very poorly controlled type 2 diabetes mellitus with noncompliance with metformin therapy as outpatient, POA Home diabetic regimen: he does not take any meds for diabetes Hba1c 11.4% insulin adjusted for hyperglycemia he does not watch his diet and does not check glucose at home. Sepsis secondary to complicated cellulitis involving the periumbilical region and abdominal wall abscess s/p I&D, POA Complicated severe cellulitis involving periumbilical/umbilical region with involvement of the abdominal wall, POA r/o Developing abscess involving periumbilical/umbilical region, POA Lactic acidosis, mild, POA, 2/2 sepsis Leukocytosis, POA Severe hyperglycemia, POA as given above Obesity, POA Hypertension, POA PLAN: increase Lantus to 25 units daily and adjust for fasting glucose. increase Regular insulin to 12 units tid before meals and adjust for post- prandial glucose. Continue medium dose sliding scale insulin. Monitor glucose q x 6 hourly. Continue carb consistent diet. Keep glucose less than 180 mg/dl. Patient will need lantus 30 units daily, metformin 500 mg bid and glimepiride 4 mg daily at discharge. Vitals/Labs Vital Signs Date Time Temp Pulse Resp B/P (MAP) Pulse Ox O2 Delivery O2 Flow Rate FiO2 01/01/25 12:00 98.4 79 20 124/73 98 Room Air 01/01/25 09:29 0 21 Laboratory Tests 01/01/25 03:53 Medications Current Medications Sodium Chloride 4,218 ml @ 1,406 mls/hr ONCE ONCE IV Last administered on 12/28/24at 17:39; Start 12/28/24 at 16:30; Stop 12/28/24 at 19:29; Status DC Vancomycin HCl 1 gm ONCE ONCE IV; Start 12/28/24 at 17:00; Stop 12/28/24 at 18:32; Status DC Cefepime HCl 1 gm ONCE ONCE IVPB Last administered on 12/28/24at 17:39; Start 12/28/24 at 17:00; Stop 12/28/24 at 17:01; Status DC Iohexol 75 ml STK-MED ONCE IV; Start 12/28/24 at 17:20; Stop 12/28/24 at 17:20; Status DC Lactated Ringer's 1,000 ml @ 100 mls/hr Q10H IV Last administered on 01/01/25at 04:00; Start 12/28/24 at 20:00; Stop 01/01/25 at 17:33; Status DC Vancomycin HCl 1 each AD IV; Start 12/28/24 at 18:30; Stop 01/01/25 at 17:33; Status DC Cefepime HCl 2 gm BID IVPB Last administered on 01/01/25at 08:51; Start 12/29/24 at 09:00; Stop 01/01/25 at 17:33; Status DC Acetaminophen 650 mg Q6H PRN PO Last administered on 12/30/24at 21:09; Start 12/28/24 at 18:30; Stop 01/01/25 at 17:33; Status DC Ondansetron HCl 4 mg Q6H PRN IVP; Start 12/28/24 at 18:30; Stop 01/01/25 at 17:33; Status DC Insulin Human Regular INSULIN SLIDING SCAL... ACHS SQ Last administered on 12/29/24at 19:55; Start 12/28/24 at 21:00; Stop 12/29/24 at 21:02; Status DC Vancomycin HCl 500 ml @ 250 mls/hr ONCE ONCE IV Last administered on 12/28/24at 18:40; Start 12/28/24 at 18:30; Stop 12/28/24 at 20:29; Status DC Famotidine 20 mg BID IV Last administered on 01/01/25at 08:52; Start 12/28/24 at 21:00; Stop 01/01/25 at 17:33; Status DC Albuterol 1 udvial Q6H PRN IH; Start 12/28/24 at 18:30; Stop 01/01/25 at 17:33; Status DC Vancomycin HCl 250 ml @ 125 mls/hr Q12H IV Last administered on 12/29/24at 19:51; Start 12/29/24 at 08:00; Stop 12/30/24 at 07:15; Status DC Morphine Sulfate 2 mg Q6H PRN IVP Last administered on 01/01/25at 10:35; Start 12/28/24 at 18:30; Stop 01/01/25 at 17:33; Status DC Ketorolac Tromethamine 15 mg Q12H PRN IV Last administered on 12/28/24at 19:54; Start 12/28/24 at 18:30; Stop 12/30/24 at 18:30; Status DC Insulin Glargine 15 units HS SQ Last administered on 12/29/24at 19:56; Start 12/28/24 at 21:00; Stop 12/30/24 at 07:33; Status DC Hydralazine HCl 5 mg Q6H PRN IV; Start 12/28/24 at 19:00; Stop 01/01/25 at 17:33; Status DC Potassium Bicarbonate 50 meq ONCE ONCE PO Last administered on 12/29/24at 05:14; Start 12/29/24 at 05:00; Stop 12/29/24 at 05:01; Status DC Magnesium Sulfate 50 ml @ 0 mls/hr ONCE ONCE IV Last administered on 12/29/24at 05:02; Start 12/29/24 at 05:00; Stop 12/29/24 at 05:01; Status DC Potassium Chloride 100 ml @ 50 mls/hr AD PRN IV; Start 12/29/24 at 07:30; Stop 01/01/25 at 17:33; Status DC Magnesium Sulfate 50 ml @ 0 mls/hr PROTOCOL PRN IV Last administered on 12/30/24at 06:15; Start 12/29/24 at 07:30; Stop 01/01/25 at 17:33; Status DC Lidocaine HCl 100 mg STK-MED ONCE .ROUTE; Start 12/29/24 at 14:08; Stop 12/29/24 at 14:08; Status DC Midazolam HCl 2 mg STK-MED ONCE .ROUTE; Start 12/29/24 at 14:08; Stop 12/29/24 at 14:09; Status DC Propofol 200 mg STK-MED ONCE IV; Start 12/29/24 at 14:09; Stop 12/29/24 at 14:09; Status DC Succinylcholine Chloride 200 mg STK-MED ONCE .ROUTE; Start 12/29/24 at 14:09; Stop 12/29/24 at 14:09; Status DC Rocuronium Ker[place] 50 mg STK-MED ONCE .ROUTE; Start 12/29/24 at 14:09; Stop 12/29/24 at 14:09; Status DC Fentanyl Citrate 100 mcg STK-MED ONCE .ROUTE; Start 12/29/24 at 14:09; Stop 12/29/24 at 14:10; Status DC Morphine Sulfate 2 mg STK-MED ONCE .ROUTE Last administered on 12/29/24at 15:29; Start 12/29/24 at 15:27; Stop 12/29/24 at 15:28; Status DC Insulin Human Regular 3 unit TIDAC SQ Last administered on 12/30/24at 11:27; Start 12/30/24 at 07:30; Stop 12/30/24 at 11:47; Status DC Insulin Human Regular INSULIN SLIDING SCAL... ACHS SQ Last administered on 01/01/25at 06:15; Start 12/29/24 at 21:00; Stop 01/01/25 at 17:33; Status DC Potassium Chloride 20 meq AD PRN PO Last administered on 01/01/25at 06:14; Start 12/30/24 at 05:00; Stop 01/01/25 at 17:33; Status DC Potassium Chloride 20 meq AD PRN PO Last administered on 12/31/24at 08:56; Start 12/30/24 at 05:00; Stop 01/01/25 at 17:33; Status DC Vancomycin HCl 250 ml @ 125 mls/hr Q12H IV Last administered on 01/01/25at 08:51; Start 12/30/24 at 20:00; Stop 01/01/25 at 17:33; Status DC Vancomycin HCl 500 ml @ 250 mls/hr ONCE ONCE IV Last administered on 12/30/24at 07:58; Start 12/30/24 at 07:30; Stop 12/30/24 at 09:29; Status DC Insulin Glargine 20 units DAILY SQ Last administered on 12/31/24at 08:48; Start 12/30/24 at 09:00; Stop 01/01/25 at 07:24; Status DC Insulin Human Regular 6 unit TIDAC SQ Last administered on 12/30/24at 17:16; Start 12/30/24 at 17:00; Stop 12/30/24 at 22:04; Status DC Insulin Human Regular 10 unit TIDAC SQ Last administered on 01/01/25at 06:16; Start 12/31/24 at 07:30; Stop 01/01/25 at 07:24; Status DC Sodium Hypochlorite 1 APPL DAILY TP Last administered on 01/01/25at 09:04; Start 01/01/25 at 09:00; Stop 01/01/25 at 17:33; Status DC Melatonin 5 mg HSPRN PRN PO Last administered on 12/31/24at 23:43; Start 12/31/24 at 23:00; Stop 01/01/25 at 17:33; Status DC Insulin Glargine 25 units DAILY SQ Last administered on 01/01/25at 08:53; Start 01/01/25 at 09:00; Stop 01/01/25 at 17:33; Status DC Insulin Human Regular 12 unit TIDAC SQ Last administered on 01/01/25at 12:43; Start 01/01/25 at 07:30; Stop 01/01/25 at 17:33; Status DC BRADFORD COSTELLO MD Jan 01, 2025 20:52
== END 2025-01-01 17:25 | disposition home or self-care (01) | DRG 854 ==
LOC: EDH 15:44 → EDHIP 15:45 → 2DH 21:42
PROVIDERS: ADMIT Internal Medicine; ATTEND Internal Medicine
PROC: 0W9F0ZZ Drainage of Abdominal Wall, Open Approach (ICD-10-PCS; principal; 2024-12-29 13:30)
DX: A41.9 Sepsis, unspecified organism (principal); E87.20 Acidosis, unspecified; L02.211 Cutaneous abscess of abdominal wall; L03.311 Cellulitis of abdominal wall; L03.316 Cellulitis of umbilicus; Z68.41 Body mass index [BMI] 40.0-44.9, adult; E11.65 Type 2 diabetes mellitus with hyperglycemia; E66.9 Obesity, unspecified; E83.42 Hypomagnesemia; E87.6 Hypokalemia; I10 Essential (primary) hypertension; B95.2 Enterococcus as the cause of diseases classified elsewhere; Z91.199 Patient's noncompliance with other medical treatment and regimen due to unspecified reason; Z91.148 Patient's other noncompliance with medication regimen for other reason
CPT/HCPCS: 36415; 36600; 74177; 80048; 80076; 80202; 81001; 82010; 82435; 82550; 82803; 82947; 82948; 83036; 83605; 83735; 84132; 84145; 84295; 84443; 84484; 85018; 85025; 85027; 85610; 85651; 85730; 86140; 86850; 86900; 86901; 87040; 87070; 87076; 87086; 87186; 87205; 87641; 93005; 94664; 96365; 96367; 99291; A4450; G0378; J0330; J0692; J1815; J1885; J2003; J2250; J2270; J2704; J3010; J3475; J3490; Q9967; A4930; J3370